=== PATIENT | male | born 1955 | race Caucasian/White ===

== ENCOUNTER 2017-03-12 07:56 | Inpatient (IN) | payer BC, OTHER ==
[~2017-03-12] VITALS: Ht 185.4 cm; Wt 121.6 kg
[2017-03-12] VITALS (7 sets, daily range): BP systolic 134–162; BP diastolic 73–87; PULSE 84–93; TEMP 36.4–36.9; O2SAT 89–97; Ht 185.4 cm; Wt 121.6 kg
[~2017-03-12 07:56] MED LIST: ASPCH81 PO; CRD200 PO; FRRS300 PO; GLC500 PO; HYDC25 PO; LRT5 PO; METO100T14 PO; MULT-506 PO
[2017-03-12] MEDS ORDERED: KETOROLAC TROMETHAMINE 30 MG/ML VIAL IV STA (08:20)
[2017-03-12] MEDS ORDERED: ALBUT/IPRATROP 3MG/0.5MG NEB 3 ML VIAL INH STA (08:20)
[2017-03-12] MEDS ORDERED: ACETAMINOPHEN 500 MG TAB PO STA (08:20)
[2017-03-12] MEDS ORDERED: SODIUM CHLORIDE 0.9% 1000ML 1,000 ML IV STA (08:20)
[2017-03-12] MEDS ORDERED: OMEG120013 PO (08:21)
[2017-03-12] MEDS ORDERED: NF406 PO (08:21)
[2017-03-12] MEDS ORDERED: METF-384 PO (08:21)
[2017-03-12] MEDS ORDERED: CHOL20009 PO (08:21)
[2017-03-12] MEDS ORDERED: ALLO100T PO (08:21)
[2017-03-12] MEDS ORDERED: DILT240C75 PO (08:21)
[2017-03-12] MEDS ORDERED: LISI40TA PO (08:21)
[2017-03-12] MEDS ORDERED: GABA-113 PO (08:21)
[2017-03-12] MEDS ORDERED: HYDR25TA5 PO (08:21)
[2017-03-12] MEDS ORDERED: DEXTTAB PO (08:21)
[2017-03-12] MEDS ORDERED: CARV25TA2 PO (08:21)
[2017-03-12] MEDS ORDERED: DEXAMETHASONE INJ 10 MG in SYRINGE 0 ML IV ONE (08:30)
[2017-03-12] MEDS ORDERED: LEVAQUIN 750MG / 150ML D5W IV STA (08:50)
[2017-03-12 08:51] LABS: BASO % 0.2 %; BASO ABS # 0.03 K/uL (0-0.2); COMPLETE YES; EOS % 0.2 %; HEMATOCRIT 38.4 % (42-52); IG% 0.6 %; LYMPH % 10.4 %; MEAN CELL VOLUME 85.3 fL (80-100); MEAN CORPUSCULAR HEMOGLOBIN 30.4 pg (25-34); MEAN CORPUSCULAR HGB CONC 35.7 g/dl (32-36); MEAN PLATELET VOLUME 10.4 fL (7.4-10.4); MONO % 12.2 %; NEUT % 76.4 %; PLATELET COUNT 343 K/uL (130-400); WHITE BLOOD COUNT 14.39 K/uL (4.8-10.8)
--- NOTE | 2017-03-12 08:57 | DIAGNOSTIC IMAGING REPORT ---
CHEST ONE VIEW PORTABLE CLINICAL HISTORY: Fever and sepsis COMPARISON STUDY: 01/04/2010 FINDINGS: There are postsurgical changes of midline sternotomy. There are extensive right middle and lower lung zone airspace opacity suspicious for pneumonia. There is mild elevation left hemidiaphragm. Linear left basilar opacities are likely atelectatic. There is no overt failure.[ IMPRESSION: Extensive right middle and lower lung zone airspace opacities suspicious for pneumonia. Clinical and radiographic follow-up is recommended. Electronically signed by: Tone Burger M.D. 03/12/2017 8:55 AM Dictated Date/Time: 03/12/2017 8:54 AM
[2017-03-12 09:08] LABS: ALT/SGPT 64 U/L (12-78); AST/SGOT 59 U/L (15-37); BLOOD UREA NITROGEN 15 mg/dl (7-18); BUN/CREATININE RATIO 16.2 (10-20); CALCIUM 9.2 mg/dl (8.5-10.1); CARBON DIOXIDE 30 mmol/L (21-32); CHLORIDE 88 mmol/L (98-107); CREATININE 0.93 mg/dl (0.60-1.40); GLUCOSE 152 mg/dl (70-99); POTASSIUM 2.6 mmol/L (3.5-5.1); SODIUM 129 mmol/L (136-145)
[2017-03-12 09:09] LABS: INR 1.1 (0.9-1.1); PARTIAL THROMBOPLASTIN RATIO 1.3; PROTHROMBIN TIME (PATIENT) 11.6 SECONDS (9.0-12.0)
[2017-03-12] MEDS ORDERED: POTASSIUM CHLORIDE 10 MEQ TABCR PO STA (09:12)
[2017-03-12] MEDS ORDERED: ENOXAPARIN 120 MG/0.8 ML SYR SQ SCH (09:15)
[2017-03-12] MEDS ORDERED: ENOXAPARIN 1 MG/KG SQ ONE (09:15)
[2017-03-12] MEDS ORDERED: DEXAMETHASONE **PF** INJ 10 MG/ML VIAL ONE (09:20)
[2017-03-12 09:22] LABS: ALKALINE PHOSPHATASE 82 U/L (45-117)
--- NOTE | 2017-03-12 10:08 | EMERGENCY ROOM VISIT NOTE ---
History Report prepared by Kofi: Awa Moctezuma Under the Supervision of: Dr. John Subramanian D.O. First contact with patient: 08:11 Chief Complaint: FLU LIKE SX Stated Complaint: FLU History of Present Illness The patient is a 61 year old male who presents to the Emergency Room with complaints of a worsening illness that began six days ago. He currently rates his discomfort as a 7/10 in severity. The patient's states that last Sunday the patient became ill and saw his PCP. She states that the patient was diagnosed with the flu and sent home with Tamiflu. The patient's states that the patient has not gotten any better, noting that the patient's symptoms have been worsening. She states that the patient has been coughing, experiencing rhinorrhea, and has been experiencing a decrease in appetite. The patient states that he cannot sleep due to his symptoms. Source of History: patient Onset: six days ago Position: other (global) Symptom Intensity: 7/10 Quality: other (illness) Timing: worsening Associated Symptoms: + fevers, + cough Review of Systems See HPI for pertinent positives & negatives. A total of 10 systems reviewed and were otherwise negative. Past Medical & Surgical Medical Problems: (1) Pneumonia Social History Smoking Status: Never Smoker Marital Status: Current/Historical Medications Scheduled Allopurinol (Zyloprim), 100 MG PO DAILY Carvedilol (Coreg), 25 MG PO BID Cholecalciferol (Vitamin D), 2,000 UNITS PO DAILY Dextromethorphan-Acetaminophen (Coricidin Hbp Flu), 1 TAB PO UD Diltiazem Hcl Extended Release (Diltiazem Hcl), 240 MG PO DAILY Gabapentin (Neurontin), 300 MG PO DAILY Hydrochlorothiazide (Hydrochlorothiazide), 25 MG PO DAILY Lisinopril (Zestril), 40 MG PO DAILY Metformin Hcl (Glucophage), 1,000 MG PO BID [place]-3 Fatty Acids (Fish Oil), 1,200 MG PO DAILY Oseltamivir Phosphate (Tamiflu), 75 MG PO BID Allergies Coded Allergies: No Known Allergies (Unverified , 03/12/17) Physical Exam Vital Signs Date Time Temp Pulse Resp B/P (MAP) Pulse Ox O2 Delivery O2 Flow Rate FiO2 03/12/17 09:40 36.9 03/12/17 09:05 104 24 181/97 94 Nasal Cannula 2.0 03/12/17 08:16 115 03/12/17 08:10 94 Nasal Cannula 2.0 03/12/17 08:10 94 Nasal Cannula 2.0 03/12/17 08:01 39.1 115 24 168/98 90 Room Air Physical Exam CONSTITUTIONAL/VITAL SIGNS: Reviewed / noted above. GENERAL: Non-toxic in appearance. INTEGUMENTARY: Warm, dry, and [place]. HEAD: Normocephalic. EYES: without scleral icterus or trauma. ENT/OROPHARYNX: clear and moist. LYMPHADENOPATHY/NECK: Is supple without lymphadenopathy or meningismus. RESPIRATORY: Lungs clear and equal. CARDIOVASCULAR: Regular rate and rhythm. GI/ABDOMEN: Soft and nontender. No organomegaly or pulsatile mass. No rebound or guarding. Normal bowel sounds. EXTREMITIES: Warm and well perfused. BACK: No CVA tenderness. NEUROLOGICAL: Intact without focal deficits. PSYCHIATRIC: normal affect. MUSCULOSKELETAL: Normally developed with good muscle tone. Medical Decision & Procedures ER Provider Diagnostic Interpretation: X ray results and stated below per my interpretation and radiology interpretation. CHEST ONE VIEW PORTABLE CLINICAL HISTORY: Fever and sepsis COMPARISON STUDY: 01/04/2010 FINDINGS: There are postsurgical changes of midline sternotomy. There are extensive right middle and lower lung zone airspace opacity suspicious for pneumonia. There is mild elevation left hemidiaphragm. Linear left basilar opacities are likely atelectatic. There is no overt failure.[ IMPRESSION: Extensive right middle and lower lung zone airspace opacities suspicious for pneumonia. Clinical and radiographic follow-up is recommended. Electronically signed by: Tone Burger M.D. 03/12/2017 8:55 AM Dictated Date/Time: 03/12/2017 8:54 AM The status of this report is Signed. Draft = Not yet reviewed or approved by Radiologist. Signed = Reviewed and approved by Radiologist. Laboratory Results 03/12/17 08:30 Red Blood Count 4.50, Mean Corpuscular Volume 85.3, Mean Corpuscular Hemoglobin 30.4, Mean Corpuscular Hemoglobin Concent 35.7, Mean Platelet Volume 10.4, Neutrophils (%) (Auto) 76.4, Lymphocytes (%) (Auto) 10.4, Monocytes (%) (Auto) 12.2, Eosinophils (%) (Auto) 0.2, Basophils (%) (Auto) 0.2, Neutrophils # (Auto ) 10.99, Lymphocytes # (Auto) 1.50, Monocytes # (Auto) 1.76, Eosinophils # (Auto ) 0.03, Basophils # (Auto) 0.03 03/12/17 08:30 Test 03/12/17 08:30 03/12/17 08:47 03/12/17 09:05 White Blood Count 14.39 K/uL (4.8-10.8) Red Blood Count 4.50 M/uL (4.7-6.1) Hemoglobin 13.7 g/dL (14.0-18.0) Hematocrit 38.4 % (42-52) Mean Corpuscular Volume 85.3 fL (80-100) Mean Corpuscular Hemoglobin 30.4 pg (25-34) Mean Corpuscular Hemoglobin Concent 35.7 g/dl (32-36) Platelet Count 343 K/uL (130-400) Mean Platelet Volume 10.4 fL (7.4-10.4) Neutrophils (%) (Auto) 76.4 % Lymphocytes (%) (Auto) 10.4 % Monocytes (%) (Auto) 12.2 % Eosinophils (%) (Auto) 0.2 % Basophils (%) (Auto) 0.2 % Neutrophils # (Auto) 10.99 K/uL (1.4-6.5) Lymphocytes # (Auto) 1.50 K/uL (1.2-3.4) Monocytes # (Auto) 1.76 K/uL (0.11-0.59) Eosinophils # (Auto) 0.03 K/uL (0-0.5) Basophils # (Auto) 0.03 K/uL (0-0.2) RDW Standard Deviation 42.1 fL (36.4-46.3) RDW Coefficient of Variation 13.5 % (11.5-14.5) Immature Granulocyte % (Auto) 0.6 % Immature Granulocyte # (Auto) 0.08 K/uL (0.00-0.02) Prothrombin Time 11.6 SECONDS (9.0-12.0) Prothromb Time International Ratio 1.1 (0.9-1.1) Activated Partial Thromboplast Time 33.3 SECONDS (21.0-31.0) Partial Thromboplastin Ratio 1.3 Anion Gap 10.0 mmol/L (3-11) Est Creatinine Clear Calc Drug Dose 116.6 ml/min Estimated GFR () 103.8 Estimated GFR (Non- 89.5 BUN/Creatinine Ratio 16.2 (10-20) Calcium Level 9.2 mg/dl (8.5-10.1) Total Bilirubin 0.8 mg/dl (0.2-1) Direct Bilirubin 0.3 mg/dl (0-0.2) Aspartate Amino Transf (AST/SGOT) 59 U/L (15-37) Alanine Aminotransferase (ALT/SGPT) 64 U/L (12-78) Alkaline Phosphatase 82 U/L (45-117) Total Creatine Kinase 1129 U/L (39-308) Creatine Kinase MB 11.0 ng/ml (0.5-3.6) Creatine Kinase MB Ratio 1.0 (0-3.0) Troponin I < 0.015 ng/ml (0-0.045) Total Protein 7.8 gm/dl (6.4-8.2) Albumin 2.9 gm/dl (3.4-5.0) Lipase 159 U/L (73-393) Lactic Acid Level 1.4 mmol/L (0.4-2.0) Laboratory results as stated above per my review. Medications Administered Medications (Trade) Dose Ordered Sig/Mervin Route Start Time Stop Time Status Last Admin Dose Admin Sodium Chloride 1,000 ml @ 999 mls/hr Q1H1M STAT IV 03/12/17 08:20 03/12/17 09:20 DC 03/12/17 09:00 999 MLS/HR Acetaminophen (Tylenol Tab) 1,000 mg NOW STAT PO 03/12/17 08:20 03/12/17 08:24 DC 03/12/17 09:01 1,000 MG Albuterol/ Ipratropium (Duoneb) 3 ml NOW STAT INH 03/12/17 08:20 03/12/17 08:24 DC 03/12/17 09:00 3 ML Ketorolac Tromethamine (Toradol Inj) 30 mg NOW STAT IV 03/12/17 08:20 03/12/17 08:24 DC 03/12/17 09:01 30 MG Levofloxacin (Levaquin / D5W) 750 mg NOW STAT IV 03/12/17 08:50 03/12/17 08:52 DC 03/12/17 09:01 750 MG Potassium Chloride (Klor-Con M10) 60 meq NOW STAT PO 03/12/17 09:12 03/12/17 09:13 DC 03/12/17 09:25 60 MEQ Enoxaparin Sodium (Lovenox 1 Mg/Kg) 1 ea ONE ONCE SQ 03/12/17 09:15 03/12/17 09:16 DC 03/12/17 09:40 1 EA Enoxaparin Sodium (Lovenox Inj) 120 mg 0915 SQ 03/12/17 09:15 03/12/17 12:15 03/12/17 09:40 120 MG Dexamethasone Sodium Phosphate (Dexamethasone Inj Pf) 10 mg STK-MED ONCE .ROUTE 03/12/17 09:20 03/12/17 09:21 DC 03/12/17 09:24 10 MG ECG Indication: weakness Rate (beats per minute): 101 Rhythm: atrial flutter Findings: no acute ischemic change, no ectopy ED Course 0814: Previous medical records were reviewed. The patient was evaluated in room A11B. A complete history and physical examination was performed. 0820: Ordered Toradol Inj 30 mg IV, DuoNeb 3 ml INH, Tylenol Tab 1000 mg PO, Sodium Chloride 1000 ml @ 999 mls/hr IV. 0830: Ordered Dexamethasone Sodium Phosphate 10 mg/Syringe 2.5 ml @ 1 mls/min IV. 0850: Levofloxacin 750 mg IV. 0912: Potassium Chloride 60 meq PO. 0915: Ordered Lovenox Inj 120 mg SX, Lovenox 1 mg/Kg 1 ea SQ. 0918: I reevaluated the patient and he is resting comfortably. I discussed the exam findings with him and I discussed the treatment plan. He verbalized complete understanding and agreement. He is going to be evaluated for further treatment. 0920: Ordered Dexamethasone Sodium Phosphate 10 mg .route. 0926: I discussed the patients case with Pamella Christianson. She is going to evaluate the patient for further treatment. Medical Decision Differential includes viral illness, influenza, streptococcal pharyngitis, meningitis, pneumonia, sinusitis, UTI, pyelonephritis, and otitis media. This is a 61-year-old male who presents to the ED with a chief complaint of shortness of breath and upper respiratory symptoms. The patient was diagnosed with influenza clinically on Sunday of last week. He was started on Tamiflu. His symptoms have worsened since that time. Has hoarseness in the voice as well as shortness of breath and nasal drainage. He also has a cough and decreased appetite. Temperature here today is 39.1. Heart rate is 1:15. Oxygen saturations are 90% on room air. His white count was 14.3. A chest x- ray reveals right middle lobe and lower lobe pneumonia. Sodium of the tests were slightly low. The patient's EKG shows A. fib with a rate of 101. He does not have a history of chronic A. fib. The patient was treated with IV Toradol, IV fluids, Tylenol by mouth, DuoNeb treatment, Decadron IV, potassium by mouth, Lovenox subcutaneous and Levaquin IV. He will be seen by the hospitalist for further inpatient evaluation and care. Medication Reconcilliation Current Medication List: was personally reviewed by me Consults Time Called: [phone] Consulting Physician: Pamella Christianson Returned Call: [phone] I discussed the patients case with Pamella Christianson. She is going to evaluate the patient for further treatment. Impression Primary Impression: Pneumonia Additional Impressions: New onset atrial fibrillation Hyponatremia Hypokalemia Scribe Attestation The scribe's documentation has been prepared under my direction and personally reviewed by me in its entirety. I confirm that the note above accurately reflects all work, treatment, procedures, and medical decision making performed by me. Departure Information Dispostion Being Evaluated By Hospitalist Galdino Babin M.D. (PCP) Problem Qualifiers
[2017-03-12 10:45] LABS: INFLUENZA A PCR Neg for Influ A (NEG); INFLUENZA B PCR Neg for Influ B (NEG)
[2017-03-12] MEDS ORDERED: LEVALBUTEROL/IPRATROPIUM NEB INH PRN (10:45)
[2017-03-12] MEDS ORDERED: ACETAMINOPHEN 325 MG TAB PO PRN (10:45)
[2017-03-12] MEDS ORDERED: ONDANSETRON INJ 2 MG/ML 2 ML VIAL IV PRN (10:45)
[2017-03-12] MEDS ORDERED: PIPERACILL/TAZOBAC CONSULT ACTIVE PRN (10:51)
[2017-03-12] MEDS ORDERED: GLUCOSE 40% GEL 15 GM TUBE PO PRN (11:00)
[2017-03-12] MEDS ORDERED: GLUCOSE 10 TABS/TUBE PO PRN (11:00)
[2017-03-12] MEDS ORDERED: GLUCAGON FOR INJ 1 MG VIAL SQ PRN (11:00)
[2017-03-12] MEDS ORDERED: IPRATROPIUM BROMIDE NEB SOLN 0.02% 2.5 ML VIAL INH PRN (11:00)
[2017-03-12] MEDS ORDERED: LEVALBUTEROL 0.63MG/3 ML NEB INH PRN (11:00)
[2017-03-12] MEDS ORDERED: DEXTROSE 50% 50 ML SYR IV PRN (11:00)
[2017-03-12] MEDS ORDERED: ASPI-435 PO (11:11)
[2017-03-12] MEDS ORDERED: CHOL100027 PO (11:11)
[2017-03-12] MEDS ORDERED: MULT-506 PO (11:11)
[2017-03-12] MEDS ORDERED: DILTIAZEM HCL 120 MG EXT REL CAP PO SCH (12:00)
[2017-03-12] MEDS: NSS + 20MEQ KCL 1000ML 1,000 ML IV SCH ×2 (12:41→22:04)
[2017-03-12] MEDS: CIPROFLOXACIN HCL 0.3% OP SOLN 2.5 ML BTL OPR SCH ×3 (12:41→20:59)
[2017-03-12] MEDS: CEFEPIME IV 2,000 MG in SYRINGE 7.5 ML IV SCH ×2 (12:42→21:02)
[2017-03-12] MEDS: INSULIN ASPART 100 UNITS/ML 3 ML PEN SC SCH ×3 (12:43→21:00)
--- NOTE | 2017-03-12 12:48 | History and Physical ---
History & Physical Date & Time of Service: Mar 12, 2017 at 11:19 Chief Complaint: FLU Primary Care Physician: Hector Aguilar M.D. (MEDICAL) History of Present Illness Source: patient, spouse Pt is 61 y/o M with PMH HTN, dyslipidemia, DM II, hx thoracic aneurysm, hx aortic valve replacement with a-fib post-op responded well to amiodarone x 3 months presented to ER with c/o cough x 6 days. Pt reports 6 days ago started with cough, tactile fever, myalgias and went to PCP and clinically dx with influenza and started on Tamiflu and Coricidin HBP. Pt finished Tamiflu yesterday. Pt states used Flonase for a couple of days, however got epistaxis so stopped, no further epistaxis. Has been using saline nasal spray also. He reports feeling worse with worsening cough, rhinorrhea, continued tactile fevers , myalgias, fatigue, decreased appetite. Has been drinking fluids, but not eating much. Has PASCUAL with coughing hard. Cough is productive yellow color sputum. Reports this morning woke up with R eye redness, purulent discharge from right eye. Pt did not take his morning meds today. Denies N/V/D/C, dizziness, syncope, vision changes, photophobia, eye injury, neck pain, CP, SOB , orthopnea, palpitations, hemoptysis, sore throat, choking, otalgia, abdominal pain, paresthesias, extremity weakness, extremity edema, rashes, urinary symptoms. In ER pt febrile 39.1, given tylenol and temp down to 36.9. Tachy at 115 down to 93 after 1L NSS. R: 24 intially down to 20 after duoneb tx. O2 90% on RA to 94% on 2L NC. BP: 168/98. EKG: a-fib rate 101. Negative troponin, CPK: 1129. K: 2.6, Pt given potassium 60. WBC: 14, Lactic acid: 1.4. Pending blood cultures. negative rapid influenza. Pt given Levaquin 750mg IV, dexamethasone, lovenox 120mg. Past Medical/Surgical History Medical Problems: (1) DM type 2 (diabetes mellitus, type 2) Status: Chronic (2) Dyslipidemia Status: Chronic (3) Gout Status: Chronic (4) HTN (hypertension) Status: Chronic (5) Hx of atrial fibrillation, no current medication Permanent Comment: 2010 - after aortic valve replaced. 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 Velasco at [facility] in [place], [place] - 12/27/09 Status: Chronic (2) Hx of tonsillectomy Status: Resolved (3) Hx of vasectomy Status: Resolved Family History FH: cancer FATHER (prostate [place]) MOTHER (Breast CA) Social History Smoking Status: Never Smoker Smokeless Tobacco Use: No Alcohol Use: socially Drug Use: none Marital Status: Housing status: lives with family Immunizations History of Influenza Vaccine: No History of Tetanus Vaccine?: Unknown History of Pneumococcal: No History of Hepatitis B Vaccine: No Multi-Drug Resistant Organisms History of MDRO: No Allergies Coded Allergies: No Known Allergies (Unverified , 03/12/17) Home Medications Scheduled Allopurinol (Zyloprim), 100 MG PO DAILY Aspirin (Aspirin 81), 1 TAB PO DAILY Carvedilol (Coreg), 25 MG PO BID Cholecalciferol (Vitamin D 1000 Unit), 2 CAP PO DAILY Dextromethorphan-Acetaminophen (Coricidin Hbp Flu), 1 TAB PO UD Diltiazem Hcl Extended Release (Diltiazem Hcl), 240 MG PO DAILY Gabapentin (Neurontin), 300 MG PO DAILY Hydrochlorothiazide (Hydrochlorothiazide), 25 MG PO DAILY Lisinopril (Zestril), 40 MG PO DAILY Metformin Hcl (Glucophage), 1,000 MG PO BID Multivitamin (Multivitamin), 1 TAB PO DAILY [place]-3 Fatty Acids (Fish Oil), 1,200 MG PO DAILY Oseltamivir Phosphate (Tamiflu), 75 MG PO BID Review of Systems Eyes: + redness (see HPI), + discharge, No worsening of vision, No eye pain ENT: + nasal symptoms (see HPI), No hearing loss, No unusual epistaxis, No sore throat, No tinnitus, No trouble swallowing Respiratory: + cough (see HPI), + sputum, No wheezing, No shortness of breath, No dyspnea on exertion, No dyspnea at rest, No hemoptysis Cardiovascular: No chest pain, No orthopnea, No PND, No edema, No palpitations Abdomen: No pain, No nausea, No vomiting, No diarrhea, No constipation, No GI bleeding Musculoskeletal: No joint pain, No muscle pain, No swelling, No calf pain Genitourinary - Male: No hematuria, No dysuria, No urinary frequency, No urinary urgency Neurologic: No memory loss, No paralysis, No numbness/tingling, No vertigo Psychiatric: No depression symptoms, No anxiety Endocrine: No excessive thirst, No excessive urination Hematologic / Lymphatic: No abnormal bleeding/bruising, No clotting problems Integumentary: No rash, No itch Physical Exam Vital Signs Date Time Temp Pulse Resp B/P (MAP) Pulse Ox O2 Delivery O2 Flow Rate FiO2 03/12/17 10:50 91 20 161/91 96 Room Air 03/12/17 09:40 36.9 03/12/17 09:05 104 24 181/97 94 Nasal Cannula 2.0 03/12/17 08:16 115 03/12/17 08:10 94 Nasal Cannula 2.0 03/12/17 08:10 94 Nasal Cannula 2.0 03/12/17 08:01 39.1 115 24 168/98 90 Room Air General Appearance: WD/WN, no apparent distress, + pertinent finding (ill appearing, non-toxic appearance) Head: normocephalic, atraumatic Eyes: PERRL, EOMI, + pertinent finding (right eye: conjuntiva erythema and mild edema, +purulent discharge. No photophobia. No orbital erythema or edema or tenderness to palpation) ENT: TMs normal, pharynx normal, + pertinent finding (+post nasal drip) Neck: supple, no JVD, trachea midline Respiratory/Chest: chest non-tender, no respiratory distress, no accessory muscle use, + pertinent finding (mild diminished RML, RLL) Cardiovascular: no murmur, normal peripheral pulses, + irregularly irregular ( rate 94) Abdomen/GI: normal bowel sounds, non tender, soft Extremities/Musculoskelatal: normal inspection, no calf tenderness, normal capillary refill, no pedal edema, normal range of motion, non-tender Neurologic/Psych: alert, normal mood/affect, oriented x 3 Skin: normal color, warm/dry, no rash Diagnostics Laboratory Results Results Past 24 Hours Test 03/12/17 08:30 03/12/17 08:47 03/12/17 09:05 Range/Units White Blood Count 14.39 4.8-10.8 K/uL Red Blood Count 4.50 4.7-6.1 M/uL Hemoglobin 13.7 14.0-18.0 g/dL Hematocrit 38.4 42-52 % Mean Corpuscular Volume 85.3 80-100 fL Mean Corpuscular Hemoglobin 30.4 25-34 pg Mean Corpuscular Hemoglobin Concent 35.7 32-36 g/dl Platelet Count 343 130-400 K/uL Mean Platelet Volume 10.4 7.4-10.4 fL Neutrophils (%) (Auto) 76.4 % Lymphocytes (%) (Auto) 10.4 % Monocytes (%) (Auto) 12.2 % Eosinophils (%) (Auto) 0.2 % Basophils (%) (Auto) 0.2 % Neutrophils # (Auto) 10.99 1.4-6.5 K/uL Lymphocytes # (Auto) 1.50 1.2-3.4 K/uL Monocytes # (Auto) 1.76 0.11-0.59 K/uL Eosinophils # (Auto) 0.03 0-0.5 K/uL Basophils # (Auto) 0.03 0-0.2 K/uL RDW Standard Deviation 42.1 36.4-46.3 fL RDW Coefficient of Variation 13.5 11.5-14.5 % Immature Granulocyte % (Auto) 0.6 % Immature Granulocyte # (Auto) 0.08 0.00-0.02 K/uL Prothrombin Time 11.6 9.0-12.0 SECONDS Prothromb Time International Ratio 1.1 0.9-1.1 Activated Partial Thromboplast Time 33.3 21.0-31.0 SECONDS Partial Thromboplastin Ratio 1.3 Sodium Level 129 136-145 mmol/L Potassium Level 2.6 3.5-5.1 mmol/L Chloride Level 88 98-107 mmol/L Carbon Dioxide Level 30 21-32 mmol/L Anion Gap 10.0 3-11 mmol/L Blood Urea Nitrogen 15 7-18 mg/dl Creatinine 0.93 0.60-1.40 mg/dl Est Creatinine Clear Calc Drug Dose 116.6 ml/min Estimated GFR () 103.8 Estimated GFR (Non- 89.5 BUN/Creatinine Ratio 16.2 10-20 Random Glucose 152 70-99 mg/dl Calcium Level 9.2 8.5-10.1 mg/dl Total Bilirubin 0.8 0.2-1 mg/dl Direct Bilirubin 0.3 0-0.2 mg/dl Aspartate Amino Transf (AST/SGOT) 59 15-37 U/L Alanine Aminotransferase (ALT/SGPT) 64 12-78 U/L Alkaline Phosphatase 82 45-117 U/L Total Creatine Kinase 1129 39-308 U/L Creatine Kinase MB 11.0 0.5-3.6 ng/ml Creatine Kinase MB Ratio 1.0 0-3.0 Troponin I < 0.015 0-0.045 ng/ml Total Protein 7.8 6.4-8.2 gm/dl Albumin 2.9 3.4-5.0 gm/dl Lipase 159 73-393 U/L Lactic Acid Level 1.4 0.4-2.0 mmol/L Influenza Type A (RT-PCR) Neg for Influ A NEG Influenza Type B (RT-PCR) Neg for Influ B NEG Microbiology Results 03/12/17 Blood Culture, Received Pending 03/12/17 Blood Culture, Received Pending Diagnostic Radiology CXR: IMPRESSION: Extensive right middle and lower lung zone airspace opacities suspicious for pneumonia. Clinical and radiographic follow-up is recommended. EKG EKG: A-fib, rate 101 Impression Assessment and Plan PNEUMONIA CAP. No recent hospitalizations. Pt with cough, tactile fevers x 6 days, seen initially out pt treated with 5 days Tamiflu, that finished yesterday. Febrile 39.1 on ER arrival, pt given Tylenol. O2 sat 90% on RA up to 94% on 2L O2. CXR: RML consolidation. Lactic acid 1.4. WBC: 14. influenza swab negative in ER. Pt given levaquin, dexamethasone, duoneb in ER. -pending blood cultures -MRSA swab -Levaquin IV -cefepime IV -supplemental oxygen per protocol -Xopenex/Atrovent nebs -repeat CXR tomorrow am -repeat CBC in am A-FIB Pt with hx a-fib after AVR in 2009, treated with amiodarone x 3 months no further recurrences. Today EKG: a-fib, Initial rate in ER 115. Rate decreased to 90's after 1L NSS in ER. Denies palpitations, CP. Negative initial troponin. CPK: 1129. Pt with some dehydration. Pt given lovenox 121 in ER -repeat EKG in am -trend cardiac enzymes -continue to monitor -gentle IV fluids -lovenox 1mg/kg Q 12h -cardiology consult HYPOKALEMIA K: 2.6. Pt given K 60 po in ER. Pending magnesium lab -NSS with 20meq K 100ml/hr -repeat prp in am CONJUNCTIVITIS - R EYE pt with conjunctivitis, onset this am. no vision changes, photophobia, no orbital edema/erythema currently -cipro eye drops -continue to monitor HTN Pt didn't take his meds this AM. Will give morning meds and continue to monitor BP. May need further adjustments -continue coreg -continue diltiazem -continue lisinopril -held HCTZ DM II -A1c in am -hold metformin -NovoLog sliding scale per protocol -Lantus 11 BID HX GOUT -continue allopurinol DVT PROPHYLAXIS -Pt given therapeutic dose lovenox DISPOSITION -admit tele -Full Code as per discussion with pt -Follows with Dr Francisco for routine care Pt was seen with Dr De La Rosa. See addendum Agree with above H and P. 61M with hx of Htn, AVR and a fib post AVR and was on amiodarone for 3 months who just finished course of Tamiflu for influenza presents with worsening cough,fevers,sob and weakness. In the Er found to have right sided pneumonia and was in a fib.Denies chest pain. No nausea. Normal bowel and bladder movements. 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 speech evaluation started on iv Levaquin and cefepime monitor response A fib continue home med of diltiazem iv Lopressor prn Lovenox cardiology consulted Level of Care Telemetry Resuscitation Status FULL RESUSCITATION VTE Prophylaxis VTE Risk Assessment Done? Y/N: Yes Risk Level: Moderate Given or contraindicated: Other Anticoagulation Additional Copies To Galdino Francisco M.D.
[2017-03-12] MEDS: CARVEDILOL 25 MG TAB PO SCH ×2 (12:54→20:59)
[2017-03-12] MEDS: LISINOPRIL 40 MG TAB PO SCH (12:54)
[2017-03-12] MEDS: ASPIRIN 81 MG ECTAB PO SCH (12:54)
[2017-03-12] MEDS: IPRATROPIUM BROMIDE NEB SOLN 0.02% 2.5 ML VIAL INH SCH ×2 (14:23→19:08)
[2017-03-12] MEDS: LEVALBUTEROL 1.25MG/0.5ML NEB INH SCH ×2 (14:23→19:08)
[2017-03-12] MEDS ORDERED: LEVALBUTEROL/IPRATROPIUM NEB INH SCH (15:00)
[2017-03-12 15:33] LABS: CKMB/CK RATIO 1.2 (0-3.0)
[2017-03-12] MEDS ORDERED: METOPROLOL TARTRATE 1 MG/ML VIAL IV PRN (16:15)
[2017-03-12 20:48] LABS: CKMB/CK RATIO 1.6 (0-3.0)
[2017-03-12] MEDS: ENOXAPARIN 120 MG/0.8 ML SYR SQ SCH (21:05)
[2017-03-12] MEDS: INSULIN GLARGINE SOLOSTAR 100 UNITS/ML 3 ML PEN SC SCH (21:05)
[2017-03-13] VITALS (10 sets, daily range): BP systolic 147–167; BP diastolic 77–96; PULSE 67–102; TEMP 36.6–37.2; O2SAT 91–99
--- NOTE | 2017-03-13 00:34 | CARDIOLOGY CONSULTATION ---
DATE OF CONSULTATION: 03/12/2017 The patient seen and examined. Chart, medications, telemetry reviewed. REFERRING PHYSICIAN: Dr. Almaguer. INDICATIONS: Pneumonia, newly noted atrial flutter. 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 The patient at that time received a 27 mm Freestyle bioprosthesis and a 28 mm Hemashield aortic root graft. Postoperative course was notable for transient atrial fibrillation without recurrence. Preoperative cardiac catheterization revealed no obstructive coronary disease per the patient. His underlying medical issues include a history of dyslipidemia, type 2 diabetes mellitus, past gout, hypertension. The patient presents now noting gradually worsening cough, fever, myalgias and treated over the past week for presumed influenza. The patient had worsening cough, rhinorrhea and hoarseness, and presented to the Emergency Room with headache and general malaise. In the ER, he was found to have significant right-sided pneumonia and newly observed atrial flutter, though with controlled ventricular response rate. The patient is referred now for further evaluation. He currently denies any signs or symptoms of cardiac decline. He has not been aware of any atrial arrhythmia since surgery. Notes no history of tachypalpitations, syncope or near syncope. Clinical history has recently changed over only in the last 1-2 weeks of upper respiratory and now cough and marked malaise. He notes no bleeding difficulties. Notes no melena, hematochezia, dysuria or hematuria. Appetite has been fair. Notes no rash or arthritic complaint. He was generally active about home and job up until recent illness. REVIEW OF SYSTEMS: As per HPI and otherwise negative. ALLERGIES: None. MEDICATIONS PRIOR TO HOSPITALIZATION: Allopurinol 100 mg p.o. daily, aspirin 81 mg daily, carvedilol 25 mg twice per day, cholecalciferol 1000 units D two capsules daily, Coricidin for decongestant, diltiazem extended release 240 mg p.o. daily, gabapentin 300 mg p.o. daily, hydrochlorothiazide 25 mg p.o. daily, Zestril 40 mg p.o. daily, metformin 1000 mg twice per day, multivitamin per day, omega-3 fish oil 1200 mg p.o. daily and Tamiflu as noted recently begun. PAST SURGICAL HISTORY: Notable for cardiac surgeries as described, aortic valve replacement and aortic root repair at [facility] in 12/2009, remote tonsillectomy and vasectomy. FAMILY HISTORY: Not specifically notable for cardiac disease. 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 He is a nonsmoker. Very rare alcohol user. PHYSICAL EXAMINATION: GENERAL: The patient appears visibly ill, hoarse and ill appearing, with conjunctival injection and discharge and itching. VITAL SIGNS: Reveal a heart rate of 90 and blood pressure is 162/87. HEENT: Normocephalic and atraumatic. Nares without discharge. Throat is clear. NECK: Supple without thyromegaly or lymphadenopathy. LUNGS: Reveal coarse rhonchorous sounds on the right. Diminished breath sounds diffusely. CARDIOVASCULAR: Regularly irregular. There is a grade 1-2/6 systolic murmur. There is no diastolic murmur. ABDOMEN: Soft and nontender. There is no palpable hepatosplenomegaly. There is no hepatojugular reflux. EXTREMITIES: Without cyanosis or clubbing. There is no peripheral edema with intact distal pulses. SKIN: There are no skin lesions. LABORATORY DATA: On presentation, sodium is 129, potassium is 2.6, chloride is 88, bicarbonate is 30, BUN is 15, creatinine 0.93. White cell count is 14.3, hemoglobin is 13.7, hematocrit is 38.4, platelet count is 343. Chest x-ray reveals extensive right middle lobe and lower lobe infiltrates. EKG demonstrates atrial flutter/fibrillation, rate 101, nonspecific ST-segment changes. IMPRESSION: The patient is a 61-year-old male with prior history of aortic valve replacement and root repair for bicuspid aortic valve disease and aortopathy in the remote past, who presents now with evidence of extensive pneumonia and clinical course consistent with such for the last 1 week's time, etiology uncertain. He does have associated hyponatremia and hypokalemia. He was found on ER presentation to be in atrial fibrillation with controlled ventricular response rate. RECOMMENDATIONS: Would continue usual medications in hospital including diltiazem and carvedilol which are likely controlling ventricular response rates. Continue to treat underlying hypertension and pneumonia including atypicals given hyponatremia. Consider screening for mycoplasma. We will review echocardiogram that has been ordered. Anticoagulation has been initiated. We will discuss possible long-term anticoagulation as clinical course progresses, and in the meantime, we will continue subcutaneous enoxaparin for treatment.
[2017-03-13] MEDS: LEVALBUTEROL 1.25MG/0.5ML NEB INH SCH ×4 (02:03→18:48)
[2017-03-13] MEDS: IPRATROPIUM BROMIDE NEB SOLN 0.02% 2.5 ML VIAL INH SCH ×4 (02:03→18:48)
[2017-03-13 07:12] LABS: BASO % 0.1 %; BASO ABS # 0.02 K/uL (0-0.2); COMPLETE YES; HEMATOCRIT 38.4 % (42-52); IG% 0.9 %; LYMPH % 11.1 %; LYMPH ABS # 1.63 K/uL (1.2-3.4); MEAN CELL VOLUME 85.9 fL (80-100); MEAN CORPUSCULAR HEMOGLOBIN 29.1 pg (25-34); MEAN CORPUSCULAR HGB CONC 33.9 g/dl (32-36); MEAN PLATELET VOLUME 10.1 fL (7.4-10.4); MONO % 8.1 %; NEUT % 79.8 %; PLATELET COUNT 337 K/uL (130-400); RED BLOOD COUNT 4.47 M/uL (4.7-6.1); WHITE BLOOD COUNT 14.74 K/uL (4.8-10.8)
[2017-03-13 07:35] LABS: ESTIMATED AVERAGE GLUCOSE 131 mg/dl; HA1C FLAG Normal (Normal)
--- NOTE | 2017-03-13 07:38 | DIAGNOSTIC IMAGING REPORT ---
CHEST 2 VIEWS ROUTINE CLINICAL HISTORY: 61 years-old Male presenting with cough, consolidation. TECHNIQUE: PA and lateral views of the chest were obtained. COMPARISON: 03/12/2017. FINDINGS: Median sternotomy wires intact. Atherosclerosis of aortic arch. Abandoned epicardial pacing lead projects over the right atrium, which appears enlarged. Overall stable appearance of the patchy bilateral pulmonary opacities in the mid and lower lungs, right greater than left. No large pleural effusion or pneumothorax. PICC to Osseous structures normal. Upper abdomen normal. IMPRESSION: 1. Stable patchy bilateral pulmonary opacities with a mid to basilar predominance, right greater than left. This is consistent with multifocal pneumonia versus aspiration/aspiration pneumonitis. Electronically signed by: Noble Canela M.D. 03/13/2017 7:37 AM Dictated Date/Time: 03/13/2017 7:34 AM
[2017-03-13] MEDS: NSS + 20MEQ KCL 1000ML 1,000 ML IV SCH ×2 (07:40→21:14)
[2017-03-13] MEDS: LEVOFLOXACIN / D5W 750 MG in PREMIXED IN D5W 150 ML IV SCH (07:40)
[2017-03-13] MEDS: ENOXAPARIN 120 MG/0.8 ML SYR SQ SCH ×2 (07:40→20:08)
[2017-03-13] MEDS: LISINOPRIL 40 MG TAB PO SCH (07:41)
[2017-03-13] MEDS: MULTIVITAMIN TAB PO SCH (07:41)
[2017-03-13] MEDS: CHOLECALCIFEROL 1000 INTER.UNIT TAB PO SCH (07:41)
[2017-03-13] MEDS: ALLOPURINOL 100 MG TAB PO SCH (07:41)
[2017-03-13] MEDS: ASPIRIN 81 MG ECTAB PO SCH (07:41)
[2017-03-13] MEDS: CIPROFLOXACIN HCL 0.3% OP SOLN 2.5 ML BTL OPR SCH ×4 (07:42→20:07)
[2017-03-13] MEDS: CARVEDILOL 25 MG TAB PO SCH ×2 (07:42→20:07)
[2017-03-13] MEDS: DILTIAZEM HCL 120 MG EXT REL CAP PO SCH (07:42)
[2017-03-13] MEDS: INSULIN ASPART 100 UNITS/ML 3 ML PEN SC SCH ×4 (07:44→20:04)
[2017-03-13] MEDS: INSULIN GLARGINE SOLOSTAR 100 UNITS/ML 3 ML PEN SC SCH (07:44)
[2017-03-13] MEDS: CEFEPIME IV 2,000 MG in SYRINGE 7.5 ML IV SCH (07:50)
[2017-03-13] MEDS: GABAPENTIN 300 MG CAP PO SCH (07:51)
[2017-03-13 07:52] LABS: CALCIUM 9.1 mg/dl (8.5-10.1); CREATININE 0.78 mg/dl (0.60-1.40); MAGNESIUM 2.1 mg/dl (1.8-2.4); POTASSIUM 3.5 mmol/L (3.5-5.1)
[2017-03-13] MEDS ORDERED: HYDROCHLOROTHIAZIDE 25 MG TAB PO SCH (09:00)
[2017-03-13] MEDS ORDERED: CARVEDILOL 12.5 MG TAB PO ONE (10:00)
--- NOTE | 2017-03-13 10:04 | CARDIOLOGY PROGRESS NOTE ---
DATE: 03/13/2017 DATE: 03/13/2017 The patient seen and examined. Chart, medications, telemetry reviewed. SUBJECTIVE: The patient feels substantially better this morning, still remains hoarse. Notes no dizziness or lightheadedness. Notes no further fevers or chills. Cough is improved. OBJECTIVE: VITAL SIGNS: Heart rate is 91, blood pressure is 167/88. NECK: Thick. There is no distinct jugular venous distention. LUNGS: Reveal scattered crackles at bases. CARDIOVASCULAR EXAMINATION: Irregularly irregular with a grade 2/6 systolic murmur. There is no diastolic murmur. ABDOMEN: Soft, nontender. There is no palpable splenomegaly. There is no hepatojugular reflux. EXTREMITIES: Without cyanosis or clubbing. There is no peripheral edema. There are intact distal pulses. DATA: Laboratory studies sodium is 133, potassium is 3.5, chloride is 95, bicarb 30, BUN is 18, creatinine 0.78. CK is mildly elevated at 745. Troponins were normal. EKG reveals atrial fibrillation, rate of 93, nonspecific ST segment changes. Chest x-ray reveals patchy infiltrates right middle lobe and right lower lobe. IMPRESSION: A 61-year-old male with a history of prior aortic valve replacement, aortic root repair for bicuspid valve disease and aortopathy in 2009, presents now with acute decline in association with significant right-sided pneumonia with newly noted atrial fibrillation on ER presentation. The patient is unaware of time or duration of onset of atrial arrhythmia, was begun on anticoagulation with Lovenox. RECOMMENDATIONS: Will increase carvedilol dosing just slightly to control blood pressure and heart rate. Would continue anticoagulation with Lovenox with planned conversion to warfarin. Treat underlying pneumonia. Potassium will be supplemented. Laboratories and examination suggestive of possible mycoplasma to etiology. He is on appropriate antibiotic therapies.
[2017-03-13] MEDS ORDERED: POTASSIUM CHLORIDE 20 MEQ TABCR PO STA (10:16)
--- NOTE | 2017-03-13 10:25 | Progress Note ---
Internal Med Progress Note Date of Service: Mar 13, 2017. Provider Documentation: SUBJECTIVE: Patient reports coughing is getting better but still present, Voice is hoarse sounding from the coughing, Denies chest pain, Denies breathing difficulties OBJECTIVE: Exam: General Appearance: no acute distress, coughing Head: normocephalic, atraumatic Eyes: EOMI Neck: supple, no JVD, trachea midline Respiratory/Chest: chest non-tender, no respiratory distress, no accessory muscle use, fair air entry mildly diminished breath sounds of right lung ibanez Cardiovascular: no murmur, normal peripheral pulses, irregularly irregular Abdomen/GI: normal bowel sounds, non tender, soft Extremities/Musculoskelatal: normal inspection, no calf tenderness, normal capillary refill, no pedal edema, normal range of motion, non-tender Neurologic/Psych: alert, normal mood/affect, oriented x 3 Skin: normal color, warm/dry, no rash ASSESSMENT & PLAN: CXR on 03/12/17 "There are postsurgical changes of midline sternotomy. There are extensive right middle and lower lung zone airspace opacity suspicious for pneumonia. There is mild elevation left hemidiaphragm. Linear left basilar opacities are likely atelectatic. There is no overt failure. IMPRESSION: Extensive right middle and lower lung zone airspace opacities suspicious for pneumonia" CXR on 03/13/17 "Median sternotomy wires intact. Atherosclerosis of aortic arch. Abandoned epicardial pacing lead projects over the right atrium, which appears enlarged. Overall stable appearance of the patchy bilateral pulmonary opacities in the mid and lower lungs, right greater than left. No large pleural effusion or pneumothorax. PICC to Osseous structures normal. Upper abdomen normal. IMPRESSION: Stable patchy bilateral pulmonary opacities with a mid to basilar predominance, right greater than left. This is consistent with multifocal pneumonia versus aspiration/aspiration pneumonitis." Community acquire pneumonia: MRSA sab negative, f/u blood cultures from 03/13/17, obtain sputum cultures, send mycoplasma lab, Patient given levaquin / dexamethasone / duoneb in the ER , continue antibiotics of Levaquin IV and cefepime IV (both started on 03/12/17) , continue supplemental oxygen, Xopenex/Atrovent nebs A-FIB Pt with hx a-fib after AVR in 2009, treated with amiodarone x 3 months no further recurrences. He was found on ER presentation to be in atrial fibrillation with controlled ventricular response rate on this admission, Continue with Lovenox 120 mg q12 hours and bridge to Coumadin, will continue to follow up with cardiology on longer term anticoagulation if needed, Continue Diltiazem for rate control, Cardiology service increased carvedilol on 03/13/17 HTN - carvedilol, diltiazem, lisinopril - continue to hold HCTZ due to electrolyte deficiencies HYPOKALEMIA and Hypomagnesemia on admission -hypomagnesemia resolved after supplementation -hypokalemia resolving after supplementation, serum potassium 3.5 on 03/13/17 and additional 40 meq potassium ordered Elevated Creatinine Kinase with normal renal function -CK downtrending, Hydration as tolerated DM II: HbA1c 6.1 -hold metformin -stop Lantus, HbA1c is 6.1 -continue NovoLog sliding scale per protocol HX GOUT -continue allopurinol CONJUNCTIVITIS - R EYE -continue ciprofloxacin eye drops DVT PROPHYLAXIS Full dose Lovenox 120 mg BID with bridge to Coumadin, Coumadin 5 mg daily ordered starting 03/13/17 Vital Signs: Date Time Temp Pulse Resp B/P (MAP) Pulse Ox O2 Delivery O2 Flow Rate FiO2 03/13/17 09:46 100 16 93 Room Air 03/13/17 08:00 Nasal Cannula 2.0 03/13/17 07:53 37.2 91 18 167/88 (114) 91 Room Air 03/13/17 04:00 Nasal Cannula 2.0 03/13/17 03:57 36.9 95 19 147/91 (109) 93 Nasal Cannula 03/13/17 02:03 67 16 96 Nasal Cannula 2.0 03/12/17 23:59 Nasal Cannula 2.0 03/12/17 23:34 36.9 91 19 134/82 (99) 92 03/12/17 20:16 36.4 84 18 160/86 (110) 91 Room Air 03/12/17 20:00 Nasal Cannula 2.0 03/12/17 19:08 87 16 93 Room Air 03/12/17 18:33 91 Room Air 03/12/17 16:00 Room Air 03/12/17 15:45 36.8 93 22 149/73 (98) 89 Room Air 03/12/17 14:26 85 16 96 Room Air 03/12/17 11:11 36.8 91 20 162/87 97 Nasal Cannula 2.0 03/12/17 10:50 91 20 161/91 96 Room Air Lab Results: Results Past 24 Hours Test 03/12/17 12:16 03/12/17 14:52 03/12/17 16:33 03/12/17 20:18 Range/Units Bedside Glucose 184 219 70-99 mg/dl Total Creatine Kinase 959 893 39-308 U/L Creatine Kinase MB 11.5 14.5 0.5-3.6 ng/ml Creatine Kinase MB Ratio 1.2 1.6 0-3.0 Troponin I < 0.015 < 0.015 0-0.045 ng/ml Test 03/12/17 20:30 03/13/17 06:38 03/13/17 06:43 Range/Units Bedside Glucose 171 150 70-99 mg/dl White Blood Count 14.74 4.8-10.8 K/uL Red Blood Count 4.47 4.7-6.1 M/uL Hemoglobin 13.0 14.0-18.0 g/dL Hematocrit 38.4 42-52 % Mean Corpuscular Volume 85.9 80-100 fL Mean Corpuscular Hemoglobin 29.1 25-34 pg Mean Corpuscular Hemoglobin Concent 33.9 32-36 g/dl Platelet Count 337 130-400 K/uL Mean Platelet Volume 10.1 7.4-10.4 fL Neutrophils (%) (Auto) 79.8 % Lymphocytes (%) (Auto) 11.1 % Monocytes (%) (Auto) 8.1 % Eosinophils (%) (Auto) 0.0 % Basophils (%) (Auto) 0.1 % Neutrophils # (Auto) 11.76 1.4-6.5 K/uL Lymphocytes # (Auto) 1.63 1.2-3.4 K/uL Monocytes # (Auto) 1.20 0.11-0.59 K/uL Eosinophils # (Auto) 0.00 0-0.5 K/uL Basophils # (Auto) 0.02 0-0.2 K/uL RDW Standard Deviation 42.7 36.4-46.3 fL RDW Coefficient of Variation 13.6 11.5-14.5 % Immature Granulocyte % (Auto) 0.9 % Immature Granulocyte # (Auto) 0.13 0.00-0.02 K/uL Sodium Level 133 136-145 mmol/L Potassium Level 3.5 3.5-5.1 mmol/L Chloride Level 95 98-107 mmol/L Carbon Dioxide Level 30 21-32 mmol/L Anion Gap 8.0 3-11 mmol/L Blood Urea Nitrogen 18 7-18 mg/dl Creatinine 0.78 0.60-1.40 mg/dl Est Creatinine Clear Calc Drug Dose 139.3 ml/min Estimated GFR () 114.5 Estimated GFR (Non- 98.8 BUN/Creatinine Ratio 23.0 10-20 Random Glucose 142 70-99 mg/dl Estimated Average Glucose 131 mg/dl Hemoglobin A1c 6.2 4.5-5.6 % Calcium Level 9.1 8.5-10.1 mg/dl Magnesium Level 2.1 1.8-2.4 mg/dl Total Creatine Kinase 745 39-308 U/L Chemistry Specimen Hemolysis Microbiology Results 03/12/17 MRSA DNA Surveillance Screen - Final, Complete Specimen Negative for MRSA by DNA Probe
[2017-03-13] MEDS: WARFARIN SOD 5 MG TAB PO SCH (16:52)
--- NOTE | 2017-03-13 16:56 | ECHOCARDIOGRAM REPORT ---
*NOTICE TO RECEIVING CONSTITUTION PARTY AGENCY This information is strictly Confidential and protected under [place] law. [place] law prohibits you from making any further disclosure of this information unless further disclosure is expressly permitted by the written consent of the person to whom it pertains or is authorized by law. A general authorization for the release of medical or other information is not sufficient for this purpose. Hospital accepts no responsibility if the information is made available to any other person, INCLUDING THE PATIENT. Interpretation Summary * Name: ELIJAH VELA Study Date: 03/13/2017 12:35 PM BP: 167/88 mmHg * Patient Location: C.2T\S\S244\S\1 HR: 100 * : 1955 (M/d/yyyy) Gender: Male Height: 71 in * Age: 61 yrs Ethnicity: CA Weight: 268 lb * Ordering Physician: Ed Rosas * Referring Physician: Self, Referred * Performed By: Ayana Otero RCS * * Reason For Study: Valvular Heart Dz, Pneumonia * BSA: 2.4 m2 * -- Conclusions -- * The left ventricle is normal in size. * There is borderline concentric left ventricular hypertrophy. * No regional wall motion abnormalities noted. * Left ventricular systolic function is normal. * Ejection Fraction = 65-70%. * The left atrial size is normal. * There is a bioprosthetic aortic valve. * The prosthetic aortic valve appears to open well. * The gradient is normal for this prosthetic aortic valve. * The aortic root is normal size (s/p surgical repair) Procedure Details * A complete two-dimensional transthoracic echocardiogram was performed (2D, M-mode, Doppler and color flow Doppler). * The study was technically difficult. * A contrast injection of Definity was performed to improve assessment of LV function. * Contrast was injected into an intravenous site in the left arm. * One vial of Definity ultrasound contrast was diluted in normal saline to a total volume of 10 ml. A total of '2' ml of solution was administered during imaging. * Lot # [id number] of Definity utilized for procedure. * Expiration date EB. * The attending nurse who injected the contrast agent was Ayana Paniagua RN. Left Ventricle * The left ventricle is normal in size. * There is borderline concentric left ventricular hypertrophy. * Ejection Fraction = 65-70%. * Left ventricular systolic function is normal. * No regional wall motion abnormalities noted. Right Ventricle * The right ventricle is normal in size and function. Atria * The left atrial size is normal. * Right atrial size is normal. * No ASD detected; PFO is not assessed. Mitral Valve * There is mild mitral annular calcification. * There is no mitral valve stenosis. * There is trace mitral regurgitation. Tricuspid Valve * The tricuspid valve is normal. * There is no tricuspid stenosis. * There is trace tricuspid regurgitation. * Doppler findings do not suggest pulmonary hypertension. Aortic Valve * No aortic regurgitation is present. * There is a bioprosthetic aortic valve. * The prosthetic aortic valve appears to open well. * The gradient is normal for this prosthetic aortic valve. Pulmonic Valve * The pulmonic valve is not well visualized. Great Vessels * The aortic root is normal size. Pericardium/Pleural * There is no pericardial effusion. Great Vessels * Normal inferior vena cava diameter and respiratory variation suggests normal central venous pressure. MMode 2D Measurements and Calculations IVSd 1.1 cm IVSs 1.4 cm LVIDd 4.4 cm LVIDs 3.2 cm LVPWd 1.2 cm LVPWs 1.5 cm IVS/LVPW 0.90 FS 28.6 % EDV(Teich) 88.4 ml ESV(Teich) 39.6 ml EF(Teich) 55.3 % EDV(cubed) 86.1 ml ESV(cubed) 31.4 ml EF(cubed) 63.5 % % IVS thick 27.8 % % LVPW thick 20.1 % LV mass(C)d 181.5 grams LV mass(C)dI 76.0 grams/m\S\2 LV mass(C)s 154.8 grams LV mass(C)sI 64.8 grams/m\S\2 CO(Teich) 4.2 l/min CI(Teich) 1.7 l/min/m\S\2 SV(Teich) 48.9 ml SI(Teich) 20.5 ml/m\S\2 CO(cubed) 4.7 l/min CI(cubed) 1.9 l/min/m\S\2 SV(cubed) 54.7 ml SI(cubed) 22.9 ml/m\S\2 Ao root diam 3.4 cm Ao root area 9.1 cm\S\2 LA dimension 4.5 cm asc Aorta Diam 3.0 cm LA/Ao 1.3 LVAd ap4 38.9 cm\S\2 LVLd ap4 8.8 cm EDV(MOD-sp4) 139.0 ml LVAs ap4 24.2 cm\S\2 LVLs ap4 7.7 cm ESV(MOD-sp4) 60.8 ml EF(MOD-sp4) 56.3 % LVAd ap2 32.4 cm\S\2 LVLd ap2 8.5 cm EDV(MOD-sp2) 101.0 ml LVAs ap2 19.0 cm\S\2 LVLs ap2 7.3 cm ESV(MOD-sp2) 40.8 ml EF(MOD-sp2) 59.6 % CO(MOD-sp4) 6.6 l/min CI(MOD-sp4) 2.8 l/min/m\S\2 SV(MOD-sp4) 78.2 ml SI(MOD-sp4) 32.7 ml/m\S\2 CO(MOD-sp2) 5.1 l/min CI(MOD-sp2) 2.1 l/min/m\S\2 SV(MOD-sp2) 60.2 ml SI(MOD-sp2) 25.2 ml/m\S\2 Doppler Measurements and Calculations MV E max jose 163.7 cm/sec MV P1/2t max jose 159.8 cm/sec MV P1/2t 68.4 msec MVA(P1/2t) 3.2 cm\S\2 MV dec slope 684.6 cm/sec\S\2 MV dec time 0.19 sec Ao V2 max 142.7 cm/sec Ao max PG 8.1 mmHg Ao max PG (full) 2.0 mmHg LV V1 max PG 6.1 mmHg LV V1 max 123.8 cm/sec PA V2 max 108.6 cm/sec PA max PG 4.7 mmHg PI max jose 155.3 cm/sec PI max PG 9.6 mmHg PI dec slope 121.0 cm/sec\S\2 PI P1/2t 375.9 msec TR max jose 236.7 cm/sec
[2017-03-14] VITALS (7 sets, daily range): BP systolic 138–156; BP diastolic 78–92; PULSE 72–113; TEMP 36.7–36.9; O2SAT 93–97
[2017-03-14] MEDS: LEVALBUTEROL 1.25MG/0.5ML NEB INH SCH ×3 (01:50→14:08)
[2017-03-14] MEDS: IPRATROPIUM BROMIDE NEB SOLN 0.02% 2.5 ML VIAL INH SCH ×3 (01:50→14:08)
[2017-03-14 07:18] LABS: HEMATOCRIT 37.7 % (42-52); MEAN CELL VOLUME 85.7 fL (80-100); MEAN CORPUSCULAR HEMOGLOBIN 29.1 pg (25-34); MEAN PLATELET VOLUME 9.6 fL (7.4-10.4); PLATELET COUNT 369 K/uL (130-400); WHITE BLOOD COUNT 14.97 K/uL (4.8-10.8)
[2017-03-14 07:27] LABS: INR 1.2 (0.9-1.1); PROTHROMBIN TIME (PATIENT) 12.1 SECONDS (9.0-12.0)
[2017-03-14] MEDS: CARVEDILOL 25 MG TAB PO SCH (07:38)
[2017-03-14] MEDS: CIPROFLOXACIN HCL 0.3% OP SOLN 2.5 ML BTL OPR SCH ×2 (07:38→12:00)
[2017-03-14] MEDS: ASPIRIN 81 MG ECTAB PO SCH (07:38)
[2017-03-14 07:39] LABS: BASO % 0.2 %; BASO ABS # 0.03 K/uL (0-0.2); COMPLETE YES; EOS % 0.3 %; IG% 1.1 %; LYMPH % 19.1 %; LYMPH ABS # 2.86 K/uL (1.2-3.4); NEUT % 70.3 %
[2017-03-14] MEDS: LISINOPRIL 40 MG TAB PO SCH (07:39)
[2017-03-14] MEDS: DILTIAZEM HCL 120 MG EXT REL CAP PO SCH (07:39)
[2017-03-14] MEDS: MULTIVITAMIN TAB PO SCH (07:39)
[2017-03-14] MEDS: CHOLECALCIFEROL 1000 INTER.UNIT TAB PO SCH (07:39)
[2017-03-14] MEDS: GABAPENTIN 300 MG CAP PO SCH (07:39)
[2017-03-14] MEDS: ENOXAPARIN 120 MG/0.8 ML SYR SQ SCH (07:40)
[2017-03-14] MEDS: ALLOPURINOL 100 MG TAB PO SCH (07:40)
[2017-03-14] MEDS: NSS + 20MEQ KCL 1000ML 1,000 ML IV SCH (07:41)
[2017-03-14] MEDS: LEVOFLOXACIN / D5W 750 MG in PREMIXED IN D5W 150 ML IV SCH (07:41)
[2017-03-14] MEDS: INSULIN ASPART 100 UNITS/ML 3 ML PEN SC SCH ×2 (07:46→11:55)
[2017-03-14 07:49] LABS: BUN/CREATININE RATIO 25.2 (10-20); CALCIUM 8.5 mg/dl (8.5-10.1); CREATININE 0.8 mg/dl (0.60-1.40); POTASSIUM 3.6 mmol/L (3.5-5.1)
[2017-03-14 07:52] LABS: ALB/GLOB RATIO 0.6 (0.9-2)
[2017-03-14] MEDS ORDERED: POTASSIUM CHLORIDE 20 MEQ TABCR PO STA (08:48)
--- NOTE | 2017-03-14 14:20 | PROGRESS NOTE ---
DATE: 03/14/2017 CARDIOLOGY CONSULTATION FOLLOWUP NOTE The patient seen in examination. Chart, medications, telemetry reviewed. SUBJECTIVE: The patient feels substantially improved since hospitalization. He remains in atrial fibrillation with mildly elevated ventricular response rate. Notes no chest pain, shortness of breath, orthopnea. Notes no sense of tachypalpitations. He has been anticoagulated with subcutaneous Lovenox since admission. Blood pressures have come under better control. Notes cough is gradually improving. OBJECTIVE: VITAL SIGNS: Heart rate is 100, blood pressure is 138/78. HEENT: Normocephalic, atraumatic. NECK: Thick. There is no distinct jugular venous distention. LUNGS: Reveal few scattered wheezes at the right base. CARDIOVASCULAR: Irregularly irregular with a grade 1/6 systolic murmur. There is no diastolic murmur. ABDOMEN: Soft, nontender. EXTREMITIES: Without cyanosis or clubbing. There is no peripheral edema. LABORATORY DATA: INR is 1.2. Sodium is 135, potassium is 3.6, chloride is 100, bicarbonate 26, BUN is 20, creatinine 0.8. White cell count is 14.9, hemoglobin is 12.8. IMPRESSION: A 61-year-old male with large right middle and lower lobe pneumonia, complicated by new onset atrial fibrillation of uncertain duration with underlying history of prior aortic valve replacement and aortic root repair. RECOMMENDATIONS: Will increase carvedilol to 50 mg twice per day for heart rate and blood pressure control. Anticoagulation has been begun with oral warfarin, would bridge to full anticoagulant therapy with planned follow up with Dr. Ingram in 1 month's time to assess consideration for return to sinus rhythm versus ongoing rate control anticoagulation regimen. ____
--- NOTE | 2017-03-14 14:34 | Progress Note ---
Internal Med Progress Note Date of Service: Mar 14, 2017. Provider Documentation: SUBJECTIVE: Patient reports coughing is getting better but still present, Voice is hoarse sounding from the coughing, Denies chest pain, Denies breathing difficulties OBJECTIVE: Exam: General Appearance: no acute distress, coughing Head: normocephalic, atraumatic Eyes: EOMI Neck: supple, no JVD, trachea midline Respiratory/Chest: chest non-tender, no respiratory distress, no accessory muscle use, fair air entry Cardiovascular: no murmur, normal peripheral pulses, irregularly irregular Abdomen/GI: normal bowel sounds, non tender, soft Extremities/Musculoskelatal: normal inspection, no calf tenderness, normal capillary refill, no pedal edema, normal range of motion, non-tender Neurologic/Psych: alert, normal mood/affect, oriented x 3 Skin: normal color, warm/dry, no rash ASSESSMENT & PLAN: CXR on 03/12/17 "There are postsurgical changes of midline sternotomy. There are extensive right middle and lower lung zone airspace opacity suspicious for pneumonia. There is mild elevation left hemidiaphragm. Linear left basilar opacities are likely atelectatic. There is no overt failure. IMPRESSION: Extensive right middle and lower lung zone airspace opacities suspicious for pneumonia" CXR on 03/13/17 "Median sternotomy wires intact. Atherosclerosis of aortic arch. Abandoned epicardial pacing lead projects over the right atrium, which appears enlarged. Overall stable appearance of the patchy bilateral pulmonary opacities in the mid and lower lungs, right greater than left. No large pleural effusion or pneumothorax. PICC to Osseous structures normal. Upper abdomen normal. IMPRESSION: Stable patchy bilateral pulmonary opacities with a mid to basilar predominance, right greater than left. This is consistent with multifocal pneumonia versus aspiration/aspiration pneumonitis." Community acquire pneumonia: MRSA swab negative, f/u blood cultures from 03/13/17 negative, sputum cultures normal khushboo, mycoplasma and legionella lab pending Patient given levaquin / dexamethasone / duoneb in the ER, antibiotics of Levaquin IV and cefepime IV (both started on 03/12/17), cefepime stopped on 03/18, patient continued IV Levaquin until 03/14/17. Continue Levaquin 750 mg once a day as oral medication on 03/15/17 and 03/16/17 to complete a total of 5 day antibiotic course for community acquired pneumonia Atrial Fibrillation Pt with hx atrial fibrillation after AVR in 2009, treated with amiodarone x 3 months no further recurrences. He was found on ER presentation to be in atrial fibrillation with controlled ventricular response rate on this admission, Continue with Lovenox 120 mg q12 hours and bridge to Coumadin, will continue to follow up with cardiology on longer term anticoagulation if needed, Continue Diltiazem for rate control, Cardiology service increased carvedilol on 03/13/17 Final Cardiology recommendations 03/14/[address] Rosas "increase carvedilol to 50 mg twice per day for heart rate and blood pressure control. Anticoagulation has been begun with oral warfarin, would bridge to full anticoagulant therapy with planned follow up with Dr. Ingram in 1 month' s time to assess consideration for return to sinus rhythm versus ongoing rate control anticoagulation regimen" As per Dr. Rosas patient can just take Coumadin for anticoagulation at home Hypertension -at home to take carvedilol, diltiazem, lisinopril, HCTZ HYPOKALEMIA and Hypomagnesemia on admission -hypomagnesemia resolved after supplementation -hypokalemia resolving after supplementation, serum potassium 3.5 on 03/13/17 and additional 40 meq potassium ordered; serum potassium better 3.6 on 03/14/17 , additional 40 meq or potassium given Elevated Creatinine Kinase with normal renal function -Creatine Kinase downtrending, hydration as tolerated DM II: HbA1c 6.1 -continue home medications History of gout -continue allopurinol CONJUNCTIVITIS - R EYE -continue ciprofloxacin eye drops for 5 more days DVT PROPHYLAXIS Coumadin 5 mg daily Discharge follow up primary care: 03/20/17 11AM with Galdino Francisco MD [facility] anticoagulation clinic appointment to be made with the patient by telephone cardiology clinic: 04/09/2017 at 12:45 PM with Sean Ingram, DO Cardiology, [facility] questions on appointment times, please call [phone] Vital Signs: Date Time Temp Pulse Resp B/P (MAP) Pulse Ox O2 Delivery O2 Flow Rate FiO2 03/14/17 14:08 72 16 95 Room Air 03/14/17 12:00 Room Air 03/14/17 11:27 36.7 100 18 138/78 (98) 93 Room Air 03/14/17 08:00 Room Air 03/14/17 07:44 36.9 91 18 156/92 (113) 93 Room Air 03/14/17 06:59 93 16 97 Room Air 03/14/17 04:02 Room Air 03/14/17 03:42 36.7 109 20 143/90 (107) 93 Room Air 03/14/17 01:50 113 16 96 Nasal Cannula 2.0 03/14/17 00:00 Nasal Cannula 2.0 03/13/17 23:08 36.8 87 19 157/96 (116) 96 Nasal Cannula 2.0 03/13/17 20:00 Room Air 03/13/17 19:24 36.6 102 22 159/93 (115) 92 Room Air 03/13/17 18:48 97 16 99 Room Air 03/13/17 16:00 Nasal Cannula 2.0 03/13/17 15:27 36.9 88 20 150/77 (101) 94 Room Air Lab Results: Results Past 24 Hours Test 03/13/17 15:54 03/13/17 19:56 03/13/17 21:30 03/14/17 06:49 Range/Units Bedside Glucose 93 126 101 70-99 mg/dl Test 03/14/17 07:00 03/14/17 11:19 Range/Units White Blood Count 14.97 4.8-10.8 K/uL Red Blood Count 4.40 4.7-6.1 M/uL Hemoglobin 12.8 14.0-18.0 g/dL Hematocrit 37.7 42-52 % Mean Corpuscular Volume 85.7 80-100 fL Mean Corpuscular Hemoglobin 29.1 25-34 pg Mean Corpuscular Hemoglobin Concent 34.0 32-36 g/dl Platelet Count 369 130-400 K/uL Mean Platelet Volume 9.6 7.4-10.4 fL Neutrophils (%) (Auto) 70.3 % Lymphocytes (%) (Auto) 19.1 % Monocytes (%) (Auto) 9.0 % Eosinophils (%) (Auto) 0.3 % Basophils (%) (Auto) 0.2 % Neutrophils # (Auto) 10.51 1.4-6.5 K/uL Lymphocytes # (Auto) 2.86 1.2-3.4 K/uL Monocytes # (Auto) 1.35 0.11-0.59 K/uL Eosinophils # (Auto) 0.05 0-0.5 K/uL Basophils # (Auto) 0.03 0-0.2 K/uL RDW Standard Deviation 42.8 36.4-46.3 fL RDW Coefficient of Variation 13.7 11.5-14.5 % Immature Granulocyte % (Auto) 1.1 % Immature Granulocyte # (Auto) 0.17 0.00-0.02 K/uL Prothrombin Time 12.1 9.0-12.0 SECONDS Prothromb Time International Ratio 1.2 0.9-1.1 Sodium Level 135 136-145 mmol/L Potassium Level 3.6 3.5-5.1 mmol/L Chloride Level 100 98-107 mmol/L Carbon Dioxide Level 26 21-32 mmol/L Anion Gap 8.0 3-11 mmol/L Blood Urea Nitrogen 20 7-18 mg/dl Creatinine 0.80 0.60-1.40 mg/dl Est Creatinine Clear Calc Drug Dose 135.8 ml/min Estimated GFR () 113.3 Estimated GFR (Non- 97.8 BUN/Creatinine Ratio 25.2 10-20 Random Glucose 100 70-99 mg/dl Calcium Level 8.5 8.5-10.1 mg/dl Total Bilirubin 0.4 0.2-1 mg/dl Aspartate Amino Transf (AST/SGOT) 76 15-37 U/L Alanine Aminotransferase (ALT/SGPT) 102 12-78 U/L Alkaline Phosphatase 73 45-117 U/L Total Protein 6.9 6.4-8.2 gm/dl Albumin 2.6 3.4-5.0 gm/dl Globulin 4.3 2.5-4.0 gm/dl Albumin/Globulin Ratio 0.6 0.9-2 Bedside Glucose 123 70-99 mg/dl Microbiology Results 03/13/17 Gram Stain - Final, Resulted 03/13/17 Sputum Culture - Preliminary, Resulted SCANT NORMAL [id number] Present, Final Rep...
[2017-03-14] MEDS ORDERED: CRG25 PO (14:44)
[2017-03-14] MEDS ORDERED: CMD5 PO (14:44)
[2017-03-14] MEDS ORDERED: CLXOPS3 OPR (14:46)
[2017-03-14] MEDS ORDERED: LEVO-459 OR (14:53)
--- NOTE | 2017-03-14 15:00 | Discharge Instructions ---
Discharge Instructions Date of Service Mar 14, 2017. Admission Reason for Admission: Pneumonia Discharge Discharge Diagnosis / Problem: community acquired pneumonia, atrial fibrillation, conjunctivitis Discharge Goals Goal(s): Improve function, Improve disease control Activity Recommendations Activity Limitations: per Instructions/Follow-up section Lifting Limitations: until after follow-up appointment Exercise/Sports Limitations: until after follow-up appointment Shower/Bathe: no limitations . Instructions / Follow-Up Instructions / Follow-Up CXR on 03/12/17 "There are postsurgical changes of midline sternotomy. There are extensive right middle and lower lung zone airspace opacity suspicious for pneumonia. There is mild elevation left hemidiaphragm. Linear left basilar opacities are likely atelectatic. There is no overt failure. IMPRESSION: Extensive right middle and lower lung zone airspace opacities suspicious for pneumonia" CXR on 03/13/17 "Median sternotomy wires intact. Atherosclerosis of aortic arch. Abandoned epicardial pacing lead projects over the right atrium, which appears enlarged. Overall stable appearance of the patchy bilateral pulmonary opacities in the mid and lower lungs, right greater than left. No large pleural effusion or pneumothorax. PICC to Osseous structures normal. Upper abdomen normal. IMPRESSION: Stable patchy bilateral pulmonary opacities with a mid to basilar predominance, right greater than left. This is consistent with multifocal pneumonia versus aspiration/aspiration pneumonitis." Community acquire pneumonia: MRSA swab negative, f/u blood cultures from 03/13/17 negative, sputum cultures normal wilberto, mycoplasma and legionella lab pending Patient given levaquin / dexamethasone / duoneb in the ER, antibiotics of Levaquin IV and cefepime IV (both started on 03/12/17), cefepime stopped on 03/18, patient continued IV Levaquin until 03/14/17. Continue Levaquin 750 mg once a day as oral medication on 03/15/17 and 03/16/17 to complete a total of 5 day antibiotic course for community acquired pneumonia Atrial Fibrillation Pt with hx atrial fibrillation after AVR in 2009, treated with amiodarone x 3 months no further recurrences. He was found on ER presentation to be in atrial fibrillation with controlled ventricular response rate on this admission, Continue with Lovenox 120 mg q12 hours and bridge to Coumadin, will continue to follow up with cardiology on longer term anticoagulation if needed, Continue Diltiazem for rate control, Cardiology service increased carvedilol on 03/13/17 Final Cardiology recommendations 03/14/[address] Rosas "increase carvedilol to 50 mg twice per day for heart rate and blood pressure control. Anticoagulation has been begun with oral warfarin, would bridge to full anticoagulant therapy with planned follow up with Dr. Ingram in 1 month' s time to assess consideration for return to sinus rhythm versus ongoing rate control anticoagulation regimen" As per Dr. Rosas patient can just take Coumadin for anticoagulation at home Hypertension -at home to take carvedilol, diltiazem, lisinopril, HCTZ HYPOKALEMIA and Hypomagnesemia on admission -hypomagnesemia resolved after supplementation -hypokalemia resolving after supplementation, serum potassium 3.5 on 03/13/17 and additional 40 meq potassium ordered; serum potassium better 3.6 on 03/14/17 , additional 40 meq or potassium given Elevated Creatinine Kinase with normal renal function -Creatine Kinase downtrending, hydration as tolerated DM II: HbA1c 6.1 -continue home medications History of gout -continue allopurinol CONJUNCTIVITIS - R EYE -continue ciprofloxacin eye drops for 5 more days DVT PROPHYLAXIS Coumadin 5 mg daily Discharge follow up primary care: 03/20/17 11AM with Galdino Francisco MD [facility] anticoagulation clinic appointment to be made with the patient by telephone cardiology clinic: 04/09/2017 at 12:45 PM with Sean Ingram, DO Cardiology, [facility] questions on appointment times, please call [phone] Current Hospital Diet Patient's current hospital diet: AHA Diet (Heart Healthy), Diabetes Type 2 Diet Discharge Diet Recommended Diet: AHA Diet (Heart Healthy), Diabetes Type 2 Diet Pending Studies Studies pending at discharge: yes List of pending studies: mycoplasma, legionella labs Laboratory Results Hemoglobin A1c Test 03/13/17 06:38 Range/Units Estimated Average Glucose 131 mg/dl Hemoglobin A1c 6.2 H 4.5-5.6 % Medical Emergencies . Who to Call and When: Medical Emergencies: If at any time you feel your situation is an emergency, please call 911 immediately. . Non-Emergent Contact Non-Emergency issues call your: Primary Care Provider, Communications Technician . . "Provider Documentation" section prepared by Gerardo Tong. . VTE Core Measure Inpt VTE Proph given/why not?: Warfarin (Coumadin)
--- NOTE | 2017-03-14 15:06 | Discharge Summary ---
Discharge Summary Date of Service Mar 14, 2017. Discharge Summary Admission Date: Mar 12, 2017 at 09:30 Discharge Date: Mar 14, 2017 Principal Diagnosis: community acquired pneumonia, conjunctivitis, atrial fibrillation, anticoagulation medications - coumadin, INR checking Medication Reconciliation New Medications: Levofloxacin (Levaquin) 500 Mg Tab 750 MG OR DAILY for 2 Days, #3 TAB start this medication on 03/15/17 and finish this medication on 03/16/17 Carvedilol (Carvedilol) 25 Mg Tab 37.5 MG PO BID for 30 Days, #90 TAB Ciprofloxacin HCl (Ciprofloxacin HCl) 37 Drops/2.5 Ml Soln 2 DROPS OPR Q4HWA for 5 Days, #1 UNIT Warfarin Sod (Coumadin) 5 Mg Tab 5 MG PO DAILY@16 for 30 Days, #30 TAB Continued Medications: Allopurinol (Zyloprim) 100 Mg Tab 100 MG PO DAILY Aspirin (Aspirin 81) 81 Mg Tab 1 TAB PO DAILY Cholecalciferol (Vitamin D 1000 Unit) 1,000 Unit Cap 2 CAP PO DAILY, CAP Dextromethorphan-Acetaminophen (Coricidin Hbp Flu) 1 Tab Tab 1 TAB PO UD Diltiazem Hcl Extended Release (Diltiazem Hcl) 240 Mg Cap 240 MG PO DAILY Gabapentin (Neurontin) 300 Mg Cap 300 MG PO DAILY Hydrochlorothiazide (Hydrochlorothiazide) 25 Mg Tab 25 MG PO DAILY Lisinopril (Zestril) 40 Mg Tab 40 MG PO DAILY Metformin Hcl (Glucophage) 1,000 Mg Tab 1000 MG PO BID Multivitamin (Multivitamin) Tab 1 TAB PO DAILY, TAB [place]-3 Fatty Acids (Fish Oil) 1,200 Mg Cap 1200 MG PO DAILY Discontinued Medications: Carvedilol (Coreg) 25 Mg Tab 25 MG PO BID Oseltamivir Phosphate (Tamiflu) 75 Mg Cap 75 MG PO BID finished course 03/11/17 Admission Information HPI (per Admitting provider): Pt is 61 y/o M with PMH HTN, dyslipidemia, DM II, hx thoracic aneurysm, hx aortic valve replacement with a-fib post-op responded well to amiodarone x 3 months presented to ER with c/o cough x 6 days. Pt reports 6 days ago started with cough, tactile fever, myalgias and went to PCP and clinically dx with influenza and started on Tamiflu and Coricidin HBP. Pt finished Tamiflu yesterday. Pt states used Flonase for a couple of days, however got epistaxis so stopped, no further epistaxis. Has been using saline nasal spray also. He reports feeling worse with worsening cough, rhinorrhea, continued tactile fevers , myalgias, fatigue, decreased appetite. Has been drinking fluids, but not eating much. Has PASCUAL with coughing hard. Cough is productive yellow color sputum. Reports this morning woke up with R eye redness, purulent discharge from right eye. Pt did not take his morning meds today. Denies N/V/D/C, dizziness, syncope, vision changes, photophobia, eye injury, neck pain, CP, SOB , orthopnea, palpitations, hemoptysis, sore throat, choking, otalgia, abdominal pain, paresthesias, extremity weakness, extremity edema, rashes, urinary symptoms. In ER pt febrile 39.1, given tylenol and temp down to 36.9. Tachy at 115 down to 93 after 1L NSS. R: 24 intially down to 20 after duoneb tx. O2 90% on RA to 94% on 2L NC. BP: 168/98. EKG: a-fib rate 101. Negative troponin, CPK: 1129. K: 2.6, Pt given potassium 60. WBC: 14, Lactic acid: 1.4. Pending blood cultures. negative rapid influenza. Pt given Levaquin 750mg IV, dexamethasone, lovenox 120mg. Physical Exam (per Admitting): General Appearance: WD/WN, no apparent distress, + pertinent finding (ill appearing, non-toxic appearance) Head: normocephalic, atraumatic Eyes: PERRL, EOMI, + pertinent finding (right eye: conjuntiva erythema and mild edema, +purulent discharge. No photophobia. No orbital erythema or edema or tenderness to palpation) ENT: TMs normal, pharynx normal, + pertinent finding (+post nasal drip) Neck: supple, no JVD, trachea midline Respiratory/Chest: chest non-tender, no respiratory distress, no accessory muscle use, + pertinent finding (mild diminished RML, RLL) Cardiovascular: no murmur, normal peripheral pulses, + irregularly irregular (rate 94) Abdomen/GI: normal bowel sounds, non tender, soft Extremities/Musculoskelatal: normal inspection, no calf tenderness, normal capillary refill, no pedal edema, normal range of motion, non-tender Neurologic/Psych: alert, normal mood/affect, oriented x 3 Skin: normal color, warm/dry, no rash Hospital Course CXR on 03/12/17 "There are postsurgical changes of midline sternotomy. There are extensive right middle and lower lung zone airspace opacity suspicious for pneumonia. There is mild elevation left hemidiaphragm. Linear left basilar opacities are likely atelectatic. There is no overt failure. IMPRESSION: Extensive right middle and lower lung zone airspace opacities suspicious for pneumonia" CXR on 03/13/17 "Median sternotomy wires intact. Atherosclerosis of aortic arch. Abandoned epicardial pacing lead projects over the right atrium, which appears enlarged. Overall stable appearance of the patchy bilateral pulmonary opacities in the mid and lower lungs, right greater than left. No large pleural effusion or pneumothorax. PICC to Osseous structures normal. Upper abdomen normal. IMPRESSION: Stable patchy bilateral pulmonary opacities with a mid to basilar predominance, right greater than left. This is consistent with multifocal pneumonia versus aspiration/aspiration pneumonitis." Community acquire pneumonia: MRSA swab negative, f/u blood cultures from 03/13/17 negative, sputum cultures normal wilberto, mycoplasma and legionella lab pending Patient given levaquin / dexamethasone / duoneb in the ER, antibiotics of Levaquin IV and cefepime IV (both started on 03/12/17), cefepime stopped on 03/18, patient continued IV Levaquin until 03/14/17. Continue Levaquin 750 mg once a day as oral medication on 03/15/17 and 03/16/17 to complete a total of 5 day antibiotic course for community acquired pneumonia Atrial Fibrillation Pt with hx atrial fibrillation after AVR in 2009, treated with amiodarone x 3 months no further recurrences. He was found on ER presentation to be in atrial fibrillation with controlled ventricular response rate on this admission, Continue with Lovenox 120 mg q12 hours and bridge to Coumadin, will continue to follow up with cardiology on longer term anticoagulation if needed, Continue Diltiazem for rate control, Cardiology service increased carvedilol on 03/13/17 Final Cardiology recommendations 03/14/[address] Rosas "increase carvedilol to 50 mg twice per day for heart rate and blood pressure control. Anticoagulation has been begun with oral warfarin, would bridge to full anticoagulant therapy with planned follow up with Dr. Ingram in 1 month' s time to assess consideration for return to sinus rhythm versus ongoing rate control anticoagulation regimen" As per Dr. Rosas patient can just take Coumadin for anticoagulation at home Hypertension -at home to take carvedilol, diltiazem, lisinopril, HCTZ HYPOKALEMIA and Hypomagnesemia on admission -hypomagnesemia resolved after supplementation -hypokalemia resolving after supplementation, serum potassium 3.5 on 03/13/17 and additional 40 meq potassium ordered; serum potassium better 3.6 on 03/14/17 , additional 40 meq or potassium given Elevated Creatinine Kinase with normal renal function -Creatine Kinase downtrending, hydration as tolerated DM II: HbA1c 6.1 -continue home medications History of gout -continue allopurinol CONJUNCTIVITIS - R EYE -continue ciprofloxacin eye drops for 5 more days DVT PROPHYLAXIS Coumadin 5 mg daily Discharge follow up primary care: 03/20/17 11AM with Galdino Francisco MD [facility] anticoagulation clinic appointment to be made with the patient by telephone cardiology clinic: 04/09/2017 at 12:45 PM with Sean Ingram, DO Cardiology, [facility] questions on appointment times, please call [phone] Total time spent on discharge = This includes examination of the patient, discharge planning, medication reconciliation, and communication with other providers. Discharge Instructions see above
[2017-03-14] MEDS: WARFARIN SOD 5 MG TAB PO SCH (15:09)
[2017-03-15 13:27] LABS: LEGIONELLA ANTIGEN NOT DETECTED (NOT DETECTED)
== END 2017-03-14 15:15 | disposition home or self-care (01) | DRG 308 ==
LOC: C.EDB 07:57 → C.2T 09:30 → CANRESERV 09:50 → ENRESERV 09:50 → CANRESERV 09:51 → ENRESERV 09:51 → EDBEDREQ 10:51
PROVIDERS: ADMIT Internal Medicine; ATTEND Hospitalist
DX: I48.91 Unspecified atrial fibrillation (principal); J18.9 Pneumonia, unspecified organism; E87.1 Hypo-osmolality and hyponatremia; E87.6 Hypokalemia; E83.42 Hypomagnesemia; H10.9 Unspecified conjunctivitis; I11.9 Hypertensive heart disease without heart failure; E11.9 Type 2 diabetes mellitus without complications; E78.5 Hyperlipidemia, unspecified; M10.9 Gout, unspecified; Z79.899 Other long term (current) drug therapy; Z79.84 Long term (current) use of oral hypoglycemic drugs; Z79.82 Long term (current) use of aspirin; Z95.2 Presence of prosthetic heart valve; Z87.74 Personal history of (corrected) congenital malformations of heart and circulatory system; Z80.42 Family history of malignant neoplasm of prostate; Z80.3 Family history of malignant neoplasm of breast

== ENCOUNTER 2017-07-20 15:01 | Inpatient (IN) | payer OTHER ==
[~2017-07-20] VITALS: Ht 185.4 cm; Wt 122.3 kg
[~2017-07-20 15:01] MED LIST changes: +ALLO100T PO; -ASPCH81 PO; +ASPI-435 PO; +CHOL100027 PO; +CLXOPS3 OPR; +CMD5 PO; -CRD200 PO; +CRG25 PO; +DEXTTAB PO; +DILT240C75 PO; -FRRS300 PO; +GABA-113 PO; -GLC500 PO; -HYDC25 PO; +HYDR25TA5 PO; +LEVO-459 OR; +LISI40TA PO; -LRT5 PO; +METF-384 PO; -METO100T14 PO; +OMEG120013 PO
[2017-07-20] MEDS ORDERED: CEFEPIME IV 2,000 MG in DEXTROSE 5% 100ML 100 ML IV STA (16:51)
[2017-07-20] MEDS ORDERED: SODIUM CHLORIDE 0.9% 1000ML 2,000 ML IV STA (16:51)
--- NOTE | 2017-07-20 17:15 | EMERGENCY ROOM VISIT NOTE ---
ED Visit Note First contact with patient: 16:31 CHIEF COMPLAINT: Fevers and chills HISTORY OF PRESENTING ILLNESS: This is a 61-year-old male with past medical history of atrial fibrillation on Coumadin, aortic porcine valve replacement in 2009, hypertension and type II diabetes, who presents to the emergency department with complaint of fevers and chills that started abruptly this morning around 4 AM. Patient states that he woke up from sleep shaking with chills. He has had fevers up to 103 off and on today. He has been taking Tylenol, his last dose was 1500 mg at 3 PM today. Patient states that he went to [facility] today, where they did blood work, flu swab, chest x- ray, and sent blood cultures. Patient states that they sent him home, but later called him and told him to go to the emergency department for further evaluation. He does not know why they told him to come in. Patient states that he has continued to have shaking chills and fevers off and on. He denies any other symptoms, including cough, sore throat, congestion, chest pain, headaches, neck pain or stiffness, shortness of breath, dizziness or syncope, abdominal pain, nausea or vomiting, diarrhea, dysuria or urinary frequency, open wounds or unusual rash. He denies any joint pain or swelling. He denies any known insect bites, but states take exposure as possible. He denies any recent travel. He denies any recent antibiotics. He denies any recent hospitalizations. He denies any known sick contacts. REVIEW OF SYSTEMS: A complete 10 point review of systems was reviewed with the patient with pertinent positives and negatives as per history of present illness. All else were negative. PAST MEDICAL HISTORY: Reviewed in chart. SOCIAL HISTORY: Lives at home with his . Denies tobacco use, alcohol or recreational drug use. ALLERGIES: No known allergies. PHYSICAL EXAM: CONSTITUTIONAL: Pleasant and cooperative. No acute distress, but appears uncomfortable. Mild rigors. Mildly dehydrated. Pale. HEENT: Normocephalic, atraumatic. Pupils equal, round and reactive to light, EOMI. TMs normal. Pharynx normal. Tacky mucous membranes. NECK: Supple, full active range of motion without discomfort. No cervical adenopathy. RESPIRATORY: Clear to auscultation bilaterally with no wheezing, crackles, rhonchi or stridor. Equal expansion bilaterally. CARDIOVASCULAR: Regular rate and rhythm. 3/6 systolic murmur. No rubs or gallops. Normal peripheral perfusion. No edema. GASTROINTESTINAL: Soft, nontender, nondistended. No rebound tenderness or guarding. No palpable masses or HSM. Bowel sounds present in all quadrants. MUSCULOSKELETAL: Full range of motion of all joints without discomfort. INTEGUMENTARY: No rash or other significant dermatologic conditions noted. NEUROLOGIC: Alert and oriented X 4 with normal affect. Cranial nerves II-XII grossly intact. No focal neurologic deficits noted. Normal strength and sensation in all 4 extremities. Normal speech. Normal gait observed. ED COURSE AND MEDICAL DECISION MAKING: CC: Patient presenting with complaint of fevers and shaking chills DIFFERENTIAL DIAGNOSIS: Includes, but not limited to sepsis, bacteremia, endocarditis, influenza, pneumonia, viral illness, Lyme infection, dehydration, among others. INTERPRETATION OF LABS: Leukocytosis with left shift, no anemia, mild hyponatremia/hypochloremia, no other significant electrolyte abnormalities, renal function within normal limits, liver enzymes within normal limits, normal lipase. Coagulation factors slightly subtherapeutic on Coumadin. Elevated lactic acid. Blood and urine cultures pending. Negative troponin. Negative Lyme testing. Notable from outpatient labs that patient was NEGATIVE for influenza A/B. IMAGING: Chest x-ray report from clinic this morning was reviewed, noting a stable cardiomediastinal silhouette and no acute process. EKG: Shows normal sinus rhythm with a rate of 94 bpm, T-wave inversions noted in the anterior and lateral leads, when compared to previous EKG from 2016 this appears to be new by my interpretation. MEDICATION RECONCILIATION: I attest that I have personally reviewed the patient 's current medication list. INITIAL VITAL SIGNS REVIEW: I reviewed the patient's initial vital signs and interpret them as follows: T: Afebrile; BP: Hypertensive; HR: Tachycardic; RR : Within normal limits; Pulse Ox: Within normal limits on room air. Blood pressure screening: The patient was found to have an elevated blood pressure and was referred to the inpatient hospitalist team for further management. SUMMARY: Patient was evaluated at bedside, history and physical exam performed. Patient is alert and oriented, in no acute distress, but appears unwell, with shaking rigors, pale, and appears mildly dehydrated. Patient does not complain of any other symptoms besides the fevers and chills. He denies any respiratory symptoms, GI symptoms, or urinary symptoms. No joint pain or swelling noted on exam. No unusual rashes noted on exam. Neurologic exam is normal and the patient is fully alert and oriented. I received outpatient records from the patient's visit this morning, including labs, UA, chest x-ray, and visit notes, which I did review. Orders were placed at bedside for labs, UA and urine culture, blood cultures 2 , lactic acid level, 2 L fluid bolus for hydration, IV cefepime for broad- spectrum antibiotic coverage given concern for possible sepsis of unknown etiology. Patient discussed with Dr. Green, who agrees with my assessment and plan. Labs and imaging reviewed as above, notable for increasing leukocytosis when compared to outpatient labs from this morning. Patient was noted to spike a fever again to 38.7, he most recently took 1500 mg of Tylenol only a few hours ago, is unable to take NSAIDs due to being on Coumadin. Given the patient's fever, tachycardia with heart rate > 90 bpm, leukocytosis, and unclear source for infection, I feel the patient warrants admission for further evaluation and management. I spoke with Jeimy Henderson PA-C with the hospitalist team, who agrees to evaluate patient for admission. Patient reassessed multiple times throughout ED stay, he has remained stable, and states he is feeling somewhat improved with IV fluids. Patient was updated on all results and plan for admission, he verbalized understanding and was agreeable to this plan. The patient was stable at time of admission. Problem List Medical Problems: (1) Atrial fibrillation Status: Chronic (2) DM type 2 (diabetes mellitus, type 2) Status: Chronic (3) Dyslipidemia Status: Chronic (4) Gout Status: Chronic (5) HTN (hypertension) Status: Chronic Surgical Problems: (1) H/O aortic valve replacement Permanent Comment: #27 Freestyle porcine prosthesis with Bentall procedure and # 28 Sy shield graft repair of the aortic root by Dr. Velasco at [facility] in [place], [place] - 12/27/09 Status: Chronic (2) History of tonsillectomy Status: Chronic (3) History of vasectomy Status: Chronic (4) Hx of tonsillectomy Status: Resolved (5) Hx of vasectomy Status: Resolved Current/Historical Medications Scheduled Allopurinol (Zyloprim), 100 MG PO DAILY Amiodarone Hcl (Cordarone), 1 TAB PO DAILY Aspirin (Aspirin 81), 1 TAB PO DAILY Carvedilol (Coreg), 37.5 MG PO BID Cholecalciferol (Vitamin D 1000 Unit), 2 CAP PO DAILY Furosemide (Lasix), 40 MG PO DAILY Gabapentin (Neurontin), 300 MG PO HS Lisinopril (Zestril), 40 MG PO DAILY Metformin Hcl (Glucophage), 1,000 MG PO BID Multivitamin (Multivitamin), 1 TAB PO DAILY [id number] Ethyl Esters (Wasco-3), 2 CAP PO BID Warfarin Sodium (Coumadin), 5 MG PO SuTuTh Warfarin Sodium (Coumadin), 2.5 MG PO MoWeFrSa Allergies Coded Allergies: No Known Allergies (Unverified , 07/20/17) Vital Signs Date Time Temp Pulse Resp B/P (MAP) Pulse Ox O2 Delivery O2 Flow Rate FiO2 07/20/17 19:01 92 27 152/61 94 07/20/17 18:46 97 22 95 07/20/17 18:31 100 28 163/68 93 07/20/17 18:26 38.7 95 24 154/76 95 Room Air 07/20/17 18:16 94 36 95 07/20/17 18:01 93 30 154/76 97 07/20/17 17:59 93 07/20/17 17:57 162/83 07/20/17 17:56 94 15 162/83 96 Room Air 07/20/17 15:38 37.2 91 20 149/76 95 Room Air 07/20/17 00:00 Room Air Laboratory Results Test 07/20/17 17:40 Activated Partial Thromboplast Time 35.9 SECONDS (21.0-31.0) Partial Thromboplastin Ratio 1.4 Total Bilirubin 1.0 mg/dl (0.2-1) Direct Bilirubin 0.2 mg/dl (0-0.2) Aspartate Amino Transf (AST/SGOT) 30 U/L (15-37) Alanine Aminotransferase (ALT/SGPT) 52 U/L (12-78) Alkaline Phosphatase 67 U/L (45-117) Troponin I < 0.015 ng/ml (0-0.045) Total Protein 7.6 gm/dl (6.4-8.2) Albumin 4.1 gm/dl (3.4-5.0) Lipase 104 U/L (73-393) Procalcitonin 0.84 ng/ml (0-0.5) Lyme Disease IgG Antibody NEG (NEG) Lyme Disease IgM Antibody NEG (NEG) Monoscreen NEG (NEG) Medications Administered Medications (Trade) Dose Ordered Sig/Mervin Route Start Time Stop Time Status Last Admin Dose Admin Sodium Chloride 2,000 ml @ 999 mls/hr Q2H1M STAT IV 07/20/17 16:51 07/20/17 18:53 DC 07/20/17 17:59 999 MLS/HR Cefepime HCl 2000 mg/Dextrose 122 ml @ 200 mls/hr NOW STAT IV 07/20/17 16:51 07/20/17 17:27 DC 07/20/17 18:00 200 MLS/HR Departure Information Impression Primary Impression: Sepsis Additional Impression: Fever Dispostion Admitted as an inpatient Condition FAIR Referrals Galdino Francisco M.D. (PCP) Patient Instructions [facility] Problem Qualifiers Primary Impression: Sepsis Sepsis type: sepsis due to unspecified organism Qualified Codes: A41.9 - Sepsis, unspecified organism Additional Impression: Fever Fever type: due to other condition Qualified Codes: R50.81 - Fever presenting with conditions classified elsewhere
[2017-07-20] MEDS ORDERED: CARV25TA PO (17:16)
[2017-07-20] MEDS ORDERED: FURO-85 PO (17:16)
[2017-07-20] MEDS ORDERED: WARF5TAB90 PO ×2 (17:16)
[2017-07-20 18:11] LABS: BASO % 0.1 %; BASO ABS # 0.01 K/uL (0-0.2); HEMATOCRIT 44.9 % (42-52); HEMOGLOBIN 15.1 g/dL (14.0-18.0); IG# 0.03 K/uL (0.00-0.02); LYMPH % 4.3 %; MEAN CELL VOLUME 84.9 fL (80-100); MEAN CORPUSCULAR HEMOGLOBIN 28.5 pg (25-34); MEAN CORPUSCULAR HGB CONC 33.6 g/dl (32-36); MEAN PLATELET VOLUME 11.5 fL (7.4-10.4); MONO % 5.3 %; MONO ABS # 0.74 K/uL (0.11-0.59); NEUT % 90.1 %; PLATELET COUNT 156 K/uL (130-400); RED CELL DISTRIBUTION WIDTH CV 14.9 % (11.5-14.5); RED CELL DISTRIBUTION WIDTH SD 46.1 fL (36.4-46.3); WHITE BLOOD COUNT 13.88 K/uL (4.8-10.8)
[2017-07-20 18:34] LABS: ALBUMIN 4.1 gm/dl (3.4-5.0); ALT/SGPT 52 U/L (12-78); AST/SGOT 30 U/L (15-37); BLOOD UREA NITROGEN 14 mg/dl (7-18); CARBON DIOXIDE 29 mmol/L (21-32); CREATININE 1.27 mg/dl (0.60-1.40); GLUCOSE 106 mg/dl (70-99); LIPASE 104 U/L (73-393); POTASSIUM 3.6 mmol/L (3.5-5.1); SODIUM 133 mmol/L (136-145)
[2017-07-20 18:35] LABS: INR 1.9 (0.9-1.1); PTT PATIENT 35.9 SECONDS (21.0-31.0)
[2017-07-20 18:37] LABS: ALKALINE PHOSPHATASE 67 U/L (45-117); TOTAL PROTEIN 7.6 gm/dl (6.4-8.2)
[2017-07-20] MEDS ORDERED: GLUCOSE 40% GEL 15 GM TUBE PO PRN (19:45)
[2017-07-20] MEDS ORDERED: POLYETHYLENE (MIRALAX) 17 GM PACK PO PRN (19:45)
[2017-07-20] MEDS ORDERED: DEXTROSE 50% 50 ML SYR IV PRN (19:45)
[2017-07-20] MEDS ORDERED: GLUCAGON FOR INJ 1 MG VIAL SQ PRN (19:45)
[2017-07-20] MEDS ORDERED: ONDANSETRON INJ 2 MG/ML 2 ML VIAL IV PRN (19:45)
[2017-07-20] MEDS ORDERED: GLUCOSE 10 TABS/TUBE PO PRN (19:45)
[2017-07-20 20:14] VITALS: O2SAT 98
[2017-07-20] MEDS ORDERED: OMEG-112 PO (20:15)
[2017-07-20] MEDS ORDERED: AMIODARONE 200 MG TAB PO ONE (20:15)
[2017-07-20] MEDS ORDERED: AMIO200T4 PO (20:15)
[2017-07-20] MEDS ORDERED: LISINOPRIL 40 MG TAB PO ONE (20:15)
[2017-07-20 20:30] VITALS: BP 108/66; PULSE 88; PULSE 91; TEMP 39.3; O2SAT 95; Ht 185.4 cm; Wt 122.3 kg
--- NOTE | 2017-07-20 20:42 | History and Physical ---
History & Physical Date & Time of Service: Jul 20, 2017 ~ 19:45 Chief Complaint: Fever Primary Care Physician: Galdino Francisco M.D. History of Present Illness 61-year-old male who presents the ED with fever. Patient reports he woke up at 4:00 in the morning and had chills and rigors. Patient did not take his temperature at home. Patient presented to his PCPs office today where he is found to be febrile at 103.1. He was given Tylenol and on recheck temperature was 103.9. He had outpatient labs, urine test, influenza testing that was all unremarkable. He was referred to the ER for further evaluation. Patient denies any other associated symptoms. No cough, shortness of breath, or sputum production. No sinus symptoms. He denies abdominal pain, nausea, vomiting, or diarrhea. No urinary symptoms or flank pain. No new rashes or lesions. He denies joint pain. No recent travel or sick contacts. 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 He denies chest pain, lightheadedness, dizziness, diaphoresis, and syncopal events. In the ED, patient was found to have WBC 13.8 K, fever of 38.7, mild tachycardia in the 90s, and elevated lactic acid 2.4. Patient was given IVF and cefepime. Past Medical/Surgical History Medical Problems: (1) Atrial fibrillation Status: Chronic (2) DM type 2 (diabetes mellitus, type 2) Status: Chronic (3) Dyslipidemia Status: Chronic (4) Gout Status: Chronic (5) HTN (hypertension) Status: Chronic Surgical Problems: (1) H/O aortic valve replacement Permanent Comment: #27 Freestyle porcine prosthesis with Bentall procedure and # 28 Sy shield graft repair of the aortic root by Dr. Velasco at [facility] in [place], [place] - 12/27/09 Status: Chronic (2) History of tonsillectomy Status: Chronic (3) History of vasectomy Status: Chronic (4) Hx of tonsillectomy Status: Resolved (5) Hx of vasectomy Status: Resolved Family History FH: CAD (coronary artery disease) MOTHER ( while having CABG at age 73) Social History Smoking Status: Never Smoker Alcohol Use: none Immunizations History of Tetanus Vaccine?: Yes Tetanus Immunization Date: Feb 17, 2008 History of Pneumococcal: Yes Pneumococcal Date: Nov 17, 2014 Allergies Coded Allergies: No Known Allergies (Unverified , 07/20/17) Home Medications Scheduled Allopurinol (Zyloprim), 100 MG PO DAILY Amiodarone Hcl (Cordarone), 1 TAB PO DAILY Aspirin (Aspirin 81), 1 TAB PO DAILY Carvedilol (Coreg), 37.5 MG PO BID Cholecalciferol (Vitamin D 1000 Unit), 2 CAP PO DAILY Furosemide (Lasix), 40 MG PO DAILY Gabapentin (Neurontin), 300 MG PO HS Lisinopril (Zestril), 40 MG PO DAILY Metformin Hcl (Glucophage), 1,000 MG PO BID Multivitamin (Multivitamin), 1 TAB PO DAILY Nnicz-0-Baom Ethyl Esters (Ceylon-3), 2 CAP PO BID Warfarin Sodium (Coumadin), 5 MG PO SuTuTh Warfarin Sodium (Coumadin), 2.5 MG PO MoWeFrSa Review of Systems ROS per HPI, all other systems reviewed and negative Physical Exam Vital Signs Date Time Temp Pulse Resp B/P (MAP) Pulse Ox O2 Delivery O2 Flow Rate FiO2 07/20/17 20:14 89 16 160/85 98 Room Air 07/20/17 19:01 92 27 152/61 94 07/20/17 18:46 97 22 95 07/20/17 18:31 100 28 163/68 93 07/20/17 18:26 38.7 95 24 154/76 95 Room Air 07/20/17 18:16 94 36 95 07/20/17 18:01 93 30 154/76 97 07/20/17 17:59 93 07/20/17 17:57 162/83 07/20/17 17:56 94 15 162/83 96 Room Air 07/20/17 15:38 37.2 91 20 149/76 95 Room Air General Appearance: WD/WN, + mild distress Head: normocephalic, atraumatic Eyes: normal inspection, EOMI, sclerae normal ENT: hearing grossly normal, pharynx normal, + pertinent finding (Mucous membranes moist) Neck: supple, no JVD, trachea midline Respiratory/Chest: lungs clear, normal breath sounds, no respiratory distress Cardiovascular: regular rate, rhythm (Heart rate in the 90s), no edema, normal peripheral pulses Abdomen/GI: normal bowel sounds, non tender, soft, no organomegaly Extremities/Musculoskelatal: normal inspection, no calf tenderness, normal capillary refill Neurologic/Psych: no motor/sensory deficits, alert, normal mood/affect, oriented x 3 Skin: normal color, warm/dry, no rash Diagnostics Laboratory Results Results Past 24 Hours Test 07/20/17 17:40 07/20/17 20:20 Range/Units White Blood Count 13.88 4.8-10.8 K/uL Red Blood Count 5.29 4.7-6.1 M/uL Hemoglobin 15.1 14.0-18.0 g/dL Hematocrit 44.9 42-52 % Mean Corpuscular Volume 84.9 80-100 fL Mean Corpuscular Hemoglobin 28.5 25-34 pg Mean Corpuscular Hemoglobin Concent 33.6 32-36 g/dl Platelet Count 156 130-400 K/uL Mean Platelet Volume 11.5 7.4-10.4 fL Neutrophils (%) (Auto) 90.1 % Lymphocytes (%) (Auto) 4.3 % Monocytes (%) (Auto) 5.3 % Eosinophils (%) (Auto) 0.0 % Basophils (%) (Auto) 0.1 % Neutrophils # (Auto) 12.50 1.4-6.5 K/uL Lymphocytes # (Auto) 0.60 1.2-3.4 K/uL Monocytes # (Auto) 0.74 0.11-0.59 K/uL Eosinophils # (Auto) 0.00 0-0.5 K/uL Basophils # (Auto) 0.01 0-0.2 K/uL RDW Standard Deviation 46.1 36.4-46.3 fL RDW Coefficient of Variation 14.9 11.5-14.5 % Immature Granulocyte % (Auto) 0.2 % Immature Granulocyte # (Auto) 0.03 0.00-0.02 K/uL Prothrombin Time 19.5 9.0-12.0 SECONDS Prothromb Time International Ratio 1.9 0.9-1.1 Activated Partial Thromboplast Time 35.9 21.0-31.0 SECONDS Partial Thromboplastin Ratio 1.4 Sodium Level 133 136-145 mmol/L Potassium Level 3.6 3.5-5.1 mmol/L Chloride Level 97 98-107 mmol/L Carbon Dioxide Level 29 21-32 mmol/L Anion Gap 8.0 3-11 mmol/L Blood Urea Nitrogen 14 7-18 mg/dl Creatinine 1.27 0.60-1.40 mg/dl Est Creatinine Clear Calc Drug Dose 91.1 ml/min Estimated GFR () 71.2 Estimated GFR (Non- 61.4 BUN/Creatinine Ratio 11.3 10-20 Random Glucose 106 70-99 mg/dl Lactic Acid Level 2.4 0.4-2.0 mmol/L Calcium Level 9.0 8.5-10.1 mg/dl Total Bilirubin 1.0 0.2-1 mg/dl Direct Bilirubin 0.2 0-0.2 mg/dl Aspartate Amino Transf (AST/SGOT) 30 15-37 U/L Alanine Aminotransferase (ALT/SGPT) 52 12-78 U/L Alkaline Phosphatase 67 45-117 U/L Troponin I < 0.015 0-0.045 ng/ml Total Protein 7.6 6.4-8.2 gm/dl Albumin 4.1 3.4-5.0 gm/dl Lipase 104 73-393 U/L Lyme Disease IgG Antibody NEG NEG Lyme Disease IgM Antibody NEG NEG Microbiology Results 07/20/17 Blood Culture, Received Pending 07/20/17 Blood Culture, Received Pending 07/20/17 Urine Culture, Received Pending Impression Assessment and Plan SEPSIS -Admit to telemetry -Patient presenting with sudden onset of high fevers early this morning -On presentation, temp 38.7, heart rate in the 90s, W BC 13.8 K, lactic acid 2.4 ; BP stable -No clear identifiable source at this time, noted no travel history or other sick contacts; consider viral etiology -Noted history of aortic valve replacement, need to consider endocarditis -Check TSH, Monospot -Blood cultures -Trend lactic acid -Empiric IV vancomycin and cefepime until cultures result -Continue IVF -Other etiologies to be considered if patient does not improve with above treatments ATRIAL FIBRILLATION -Rhythm controlled on amiodarone, rate controlled on carvedilol -Anticoagulated on Coumadin, INR 1.9 -Continue Coumadin as per home dosing schedule S/P BIOPROSTHETIC AORTIC VALVE REPLACEMENT HYPERTENSION -BP is mildly elevated, however did not take home medications today -Continue lisinopril and carvedilol, make adjustments as needed DIABETES -Hold oral agents and utilize Lantus and NovoLog while hospitalized GOUT -Continue allopurinol DVT PROPHYLAXIS -Anticoagulated on Coumadin, INR 1.9 DISPOSITION -In my clinical judgment this beneficiary meets acute admission criteria, established by [facility], that includes being hospitalized through two midnights. ADDENDUM: I have seen and examined the patient and agree with the assessment and plan as above. Fever began abruptly this morning. No infectious symptoms are present, no source identified. Multiple etiologies listed above and not an exhaustive list. Cont workup while cultures pending. Monitor response to abx and for clinical improvement. Of note, he denies travel history, sick contacts , recent outpatient procedures, and no recent dental work. Evans, DO Resuscitation Status VTE Prophylaxis Will order VTE Prophylaxis: Yes
[2017-07-20] MEDS: GABAPENTIN 300 MG CAP PO SCH (21:00)
[2017-07-20] MEDS: INSULIN ASPART 100 UNITS/ML 3 ML PEN SC SCH (21:00)
[2017-07-20] MEDS: ACETAMINOPHEN 325 MG TAB PO PRN (21:09)
[2017-07-20 21:30] VITALS: PULSE 88; O2SAT 95
[2017-07-20] MEDS: SODIUM CHLORIDE 0.9% 1000ML 1,000 ML IV SCH (21:46)
[2017-07-20] MEDS: WARFARIN SOD 2.5 MG TAB PO SCH (21:49)
[2017-07-20] MEDS: CARVEDILOL 25 MG TAB PO SCH (21:52)
[2017-07-20] MEDS: OMEGA-3 (PURIFIED FISH OIL) 1 GM CAP PO SCH (21:52)
[2017-07-20] MEDS: INSULIN GLARGINE SOLOSTAR 100 UNITS/ML 3 ML PEN SC SCH (21:59)
[2017-07-20 22:23] VITALS: BP 108/69; PULSE 87; O2SAT 95
[2017-07-20 22:30] VITALS: PULSE 83; O2SAT 95
[2017-07-20] MEDS ORDERED: LORAZEPAM 0.5 MG TAB PO STA (22:56)
[2017-07-20] MEDS ORDERED: SODIUM CHLORIDE 0.9% 500ML 500 ML IV SCH (23:00)
[2017-07-20 23:30] VITALS: PULSE 77
[2017-07-21] VITALS (13 sets, daily range): BP systolic 108–139; BP diastolic 53–62; PULSE 58–85; TEMP 36.8–38.6; O2SAT 91–96
[2017-07-21 03:58] LABS: BASO % 0.1 %; BASO ABS # 0.01 K/uL (0-0.2); HEMATOCRIT 38.3 % (42-52); HEMOGLOBIN 12.9 g/dL (14.0-18.0); IG# 0.03 K/uL (0.00-0.02); LYMPH % 4.8 %; LYMPH ABS # 0.51 K/uL (1.2-3.4); MEAN CELL VOLUME 84.2 fL (80-100); MEAN CORPUSCULAR HEMOGLOBIN 28.4 pg (25-34); MEAN CORPUSCULAR HGB CONC 33.7 g/dl (32-36); MEAN PLATELET VOLUME 10.4 fL (7.4-10.4); MONO % 6.1 %; MONO ABS # 0.64 K/uL (0.11-0.59); NEUT % 88.7 %; NEUT ABS # 9.33 K/uL (1.4-6.5); PLATELET COUNT 124 K/uL (130-400); RED CELL DISTRIBUTION WIDTH CV 15.1 % (11.5-14.5); RED CELL DISTRIBUTION WIDTH SD 46.6 fL (36.4-46.3); WHITE BLOOD COUNT 10.52 K/uL (4.8-10.8)
[2017-07-21 04:06] LABS: INR 1.7 (0.9-1.1)
[2017-07-21 04:15] LABS: CALCIUM 7.9 mg/dl (8.5-10.1); CREATININE 1.18 mg/dl (0.60-1.40); POTASSIUM 3.4 mmol/L (3.5-5.1)
[2017-07-21] MEDS: ACETAMINOPHEN 325 MG TAB PO PRN ×3 (05:23→23:04)
[2017-07-21] MEDS ORDERED: VANCOMYCIN IV 0 MG in SODIUM CHLORIDE 0.9% 250ML 250 ML IV STA (06:14)
[2017-07-21] MEDS ORDERED: VANCOMYCIN CONSULT ACTIVE PRN (06:15)
[2017-07-21] MEDS ORDERED: VANCOMYCIN IV 2,500 MG in SODIUM CHLORIDE 0.9% 500ML 500 ML IV SCH (06:30)
[2017-07-21 07:19] LABS: HEMOGLOBIN A1C 5.8 % (4.5-5.6)
[2017-07-21] MEDS: ASPIRIN 81 MG ECTAB PO SCH (07:47)
[2017-07-21] MEDS: MULTIVITAMIN TAB PO SCH (07:47)
[2017-07-21] MEDS: OMEGA-3 (PURIFIED FISH OIL) 1 GM CAP PO SCH ×2 (07:47→20:43)
[2017-07-21] MEDS: LISINOPRIL 40 MG TAB PO SCH (07:47)
[2017-07-21] MEDS: ALLOPURINOL 100 MG TAB PO SCH (07:47)
[2017-07-21] MEDS: CHOLECALCIFEROL 1000 INTER.UNIT TAB PO SCH (07:48)
[2017-07-21] MEDS: AMIODARONE 200 MG TAB PO SCH (07:48)
[2017-07-21] MEDS: CARVEDILOL 25 MG TAB PO SCH ×2 (07:49→20:43)
[2017-07-21] MEDS: SODIUM CHLORIDE 0.9% 1000ML 1,000 ML IV SCH (08:03)
[2017-07-21] MEDS: INSULIN ASPART 100 UNITS/ML 3 ML PEN SC SCH ×4 (08:06→20:42)
[2017-07-21] MEDS ORDERED: PERFLUTREN LIPID MICROSPHERE (DEFINITY) IV ONE (08:18)
[2017-07-21] MEDS ORDERED: ENOXAPARIN 40 MG/0.4 ML SYR SC SCH (09:00)
--- NOTE | 2017-07-21 09:10 | ECHOCARDIOGRAM REPORT ---
*NOTICE TO RECEIVING LIBERTARIAN AGENCY This information is strictly Confidential and protected under [place] law. [place] law prohibits you from making any further disclosure of this information unless further disclosure is expressly permitted by the written consent of the person to whom it pertains or is authorized by law. A general authorization for the release of medical or other information is not sufficient for this purpose. Hospital accepts no responsibility if the information is made available to any other person, INCLUDING THE PATIENT. Interpretation Summary * Name: ELIJAH VELA Study Date: 07/21/2017 07:56 AM BP: 139/53 mmHg * Patient Location: .MSICU\S\E111\S\1 HR: 82 * : 1955 (M/d/yyyy) Gender: Male Height: 73 in * Age: 61 yrs Ethnicity: CA Weight: 262 lb * Ordering Physician: Glenys Jeffries * Referring Physician: Self, Referred * Performed By: Haritha Aparicio RDCS * * Reason For Study: Endocarditis * BSA: 2.4 m2 * The study was technically limited. * -- Conclusions -- * Ejection Fraction = 60-65%. * There is mild concentric left ventricular hypertrophy. * There is a bioprosthetic aortic valve. * The gradient is normal for this prosthetic aortic valve. * No significant prosthetic valve regurgitation. * Technically limited views of the mitral valve demonstrate moderate mitral annular calcification. * Underlying vegetation cannot be excluded. Procedure Details * A complete two-dimensional transthoracic echocardiogram was performed (2D, M-mode, Doppler and color flow Doppler). * A contrast injection of Definity was performed to improve assessment of LV function. * Contrast was injected into an intravenous site in the left arm. * One vial of Definity ultrasound contrast was diluted in normal saline to a total volume of 10 ml. A total of '1' ml of solution was administered during imaging. * Lot # [id number] of Definity utilized for procedure. * Expiration date JUL 19. * The attending nurse who injected the contrast agent was Yvonne Logan RN. Left Ventricle * The left ventricle is normal in size. * There is no thrombus. * There is mild concentric left ventricular hypertrophy. * Ejection Fraction = 60-65%. * Left ventricular systolic function is normal. * The left ventricular wall motion is normal. Right Ventricle * The right ventricle is normal size. * The right ventricular systolic function is normal as assessed by tricuspid annular plane systolic excursion (TAPSE) (normal >1.5 cm). Atria * The left atrial size is normal. * Right atrial size is normal. * There is no evidence of atrial septal defect, but resolution does not allow assessment for a patent foramen ovale. Mitral Valve * Technically limited views of the mitral valve demonstrate moderate mitral annular calcification. Underlying vegetation cannot be excluded. * There is no mitral valve stenosis. * Significant mitral regurgitation is absent. Tricuspid Valve * The tricuspid valve is normal. * There is no tricuspid stenosis. * Significant tricuspid regurgitation is absent. Aortic Valve * There is a bioprosthetic aortic valve. * The gradient is normal for this prosthetic aortic valve. * No significant prosthetic valve regurgitation. Pulmonic Valve * The pulmonary valve is not well seen, but the Doppler examination is normal without significant regurgitation or stenosis. Great Vessels * The aortic root is normal size. Pericardium/Pleural * There is no pericardial effusion. Great Vessels * Normal inferior vena cava diameter and respiratory variation suggests normal central venous pressure. Left Ventricular Diastolic Function * Diastolic dysfunction, Grade II (pseudonormalization pattern). MMode 2D Measurements and Calculations IVSd 1.3 cm LVIDd 3.9 cm LVIDs 2.6 cm LVPWd 1.2 cm IVS/LVPW 1.0 FS 33.4 % EDV(Teich) 64.6 ml ESV(Teich) 24.0 ml EF(Teich) 62.8 % EDV(cubed) 57.9 ml ESV(cubed) 17.1 ml EF(cubed) 70.5 % LV mass(C)d 171.4 grams LV mass(C)dI 71.0 grams/m\S\2 SV(Teich) 40.6 ml SI(Teich) 16.8 ml/m\S\2 SV(cubed) 40.8 ml SI(cubed) 16.9 ml/m\S\2 Ao root diam 3.1 cm Ao root area 7.7 cm\S\2 LA dimension 3.6 cm asc Aorta Diam 2.7 cm LA/Ao 1.2 LVOT diam 2.0 cm LVOT area 3.2 cm\S\2 LVAd ap4 41.4 cm\S\2 LVLd ap4 8.8 cm EDV(MOD-sp4) 155.2 ml EDV(sp4-el) 164.5 ml LVAs ap4 22.7 cm\S\2 LVLs ap4 7.9 cm ESV(MOD-sp4) 53.5 ml ESV(sp4-el) 55.6 ml EF(MOD-sp4) 65.5 % EF(sp4-el) 66.2 % LVAd ap2 35.5 cm\S\2 LVLd ap2 8.3 cm EDV(MOD-sp2) 124.5 ml EDV(sp2-el) 128.4 ml LVAs ap2 18.7 cm\S\2 LVLs ap2 6.8 cm ESV(MOD-sp2) 41.4 ml ESV(sp2-el) 43.9 ml EF(MOD-sp2) 66.8 % EF(sp2-el) 65.8 % LVLd %diff -6.01 % EDV(MOD-bp) 137.4 ml LVLs %diff -15.60 % ESV(MOD-bp) 49.2 ml EF(MOD-bp) 64.2 % SV(MOD-sp4) 101.7 ml SI(MOD-sp4) 42.1 ml/m\S\2 SV(MOD-sp2) 83.2 ml SI(MOD-sp2) 34.5 ml/m\S\2 SV(MOD-bp) 88.3 ml SI(MOD-bp) 36.6 ml/m\S\2 SV(sp4-el) 108.9 ml SI(sp4-el) 45.1 ml/m\S\2 SV(sp2-el) 84.5 ml SI(sp2-el) 35.0 ml/m\S\2 Doppler Measurements and Calculations MV E max jose 144.0 cm/sec MV A max jose 74.0 cm/sec MV E/A 1.9 MV dec time 0.23 sec Ao V2 max 155.4 cm/sec Ao max PG 9.7 mmHg Ao max PG (full) 2.1 mmHg CHAVO(V,A) 2.8 cm\S\2 CHAVO(V,D) 2.8 cm\S\2 LV V1 max PG 7.6 mmHg LV V1 max 137.4 cm/sec PA V2 max 112.2 cm/sec PA max PG 5.0 mmHg PA acc slope 475.9 cm/sec\S\2 PA acc time 0.16 sec PA pr(Accel) 6.1 mmHg
--- NOTE | 2017-07-21 12:47 | Pharmacy Progress Note ---
Pharmacy Abx Initial Consult Date of Service Jul 21, 2017. Pharmacy Dosing Scope Date of Consult: 07/21/17 Consultation requested by: Dr. King Pharmacy is consulted to initiate Vancomcyin IV dosing therapy, order appropriate labs and adjust drug dose/frequency for Bacteremia. Subjective The patient is a 61 year old male admitted on Jul 20, 2017 at 19:40. Objective Height (Feet): 6 Height (Inches): 1.00 Weight (Kilograms): 118.900 Vital Signs (Past 12Hrs) Vital Signs Past 12 Hours Date Time Temp Pulse Resp B/P (MAP) Pulse Ox O2 Delivery O2 Flow Rate FiO2 07/21/17 10:38 37.7 07/21/17 08:25 Room Air 07/21/17 08:00 Room Air 07/21/17 07:54 36.8 71 30 113/61 (78) 96 Room Air 07/21/17 04:01 Room Air 07/21/17 04:01 82 26 139/53 (81) 07/21/17 04:00 84 26 07/21/17 03:00 85 34 07/21/17 02:00 85 36 07/21/17 01:00 82 30 07/21/17 00:39 Room Air Lab Results (24Hrs) Laboratory Tests (24 Hours) Test 07/20/17 17:40 07/21/17 03:47 Procalcitonin 0.84 ng/ml (0-0.5) H Lactic Acid Level 1.3 mmol/L (0.4-2.0) White Blood Count 10.52 K/uL (4.8-10.8) Red Blood Count 4.55 M/uL (4.7-6.1) L Hemoglobin 12.9 g/dL (14.0-18.0) L Hematocrit 38.3 % (42-52) L Mean Corpuscular Volume 84.2 fL (80-100) Mean Corpuscular Hemoglobin 28.4 pg (25-34) Mean Corpuscular Hemoglobin Concent 33.7 g/dl (32-36) Platelet Count 124 K/uL (130-400) L Mean Platelet Volume 10.4 fL (7.4-10.4) Neutrophils (%) (Auto) 88.7 % Lymphocytes (%) (Auto) 4.8 % Monocytes (%) (Auto) 6.1 % Eosinophils (%) (Auto) 0.0 % Basophils (%) (Auto) 0.1 % Neutrophils # (Auto) 9.33 K/uL (1.4-6.5) H Lymphocytes # (Auto) 0.51 K/uL (1.2-3.4) L Monocytes # (Auto) 0.64 K/uL (0.11-0.59) H Eosinophils # (Auto) 0.00 K/uL (0-0.5) Basophils # (Auto) 0.01 K/uL (0-0.2) Micro Results Date/Time Source Procedure Growth Status 07/20/17 17:59 Blood Blood Culture - Preliminary Gram Positive Cocci Resulted 07/20/17 17:40 Blood Blood Culture - Preliminary Gram Positive Cocci Resulted 07/20/17 01:35 Urine , Clean Catch Urine Culture Pending Received Assessment & Plan Assessment 61 year old male admitted with Sepsis. Plan Vancomycin for treatment of Bacteremia (blood cultures positive for Gram positive cocci). Vancomycin IV * Loading dose: Vancomycin 2500 mg (21mg/kg) x 1 given today at 0630 * Estimated PK parameters: Ke = 0.079/hr, Vd= 0.7 L/kg, t1/2 = 8.8 hrs * Maintenance dose: 1750 mg IV (14.7 mg/kg) every 12 hours started today at 1600. * Goal trough level for Bacteremia: 15 to 20 mcg/mL * Trough Vancomycin level ordered for 07/23/17 before dose at 0400. * Vancomycin dosed conservatively due to likelihood of drug accumulation in almost obese patient (BMI 34.6 kg/m2). Pharmacy will continue to follow and will adjust dose/frequency as necessary. Thank you.
[2017-07-21] MEDS ORDERED: POTASSIUM CHLORIDE 10 MEQ TABCR PO STA (15:42)
[2017-07-21] MEDS: VANCOMYCIN IV 1,750 MG in SODIUM CHLORIDE 0.9% 500ML 500 ML IV SCH (17:05)
--- NOTE | 2017-07-21 20:27 | Progress Note ---
Internal Med Progress Note Date of Service: Jul 21, 2017. Provider Documentation: SUBJECTIVE: Offers no complaint, No fever chills Vitals remain stable OBJECTIVE: Vital Signs-as noted below Exam: General-no sign of distress Eyes-sclera nonicteric ENT-moist oral mucous Neck-no JVD Lungs-clear to auscultate Heart-regular S1-S2 Abdomen-soft nontender Extremities-no lower extremity Neuro-alert awake oriented 3/no focal neurological deficit Lab data as noted below. ASSESSMENT & PLAN: SEPSIS/WITH GRAM-POSITIVE BACTEREMIA -Patient presented with sudden onset of high fevers early in a.m. morning Criteria for sepsis -On presentation, temp 38.7, heart rate in the 90s, W BC 13.8 K, lactic acid 2.4 ; BP stable -Blood culture positive for gram-positive cocci High risk for endocarditis as patient has bioprosthetic aortic valve Repeat blood culture ordered On empiric antibiotic with vancomycin and cefepime ID eval requested - ATRIAL FIBRILLATION -Rhythm controlled on amiodarone, rate controlled on carvedilol -Anticoagulated on Coumadin, INR 1.9 -Continue Coumadin as per home dosing schedule S/P BIOPROSTHETIC AORTIC VALVE REPLACEMENT Echocardiogram : Ejection Fraction = 60-65%. * There is mild concentric left ventricular hypertrophy. * There is a bioprosthetic aortic valve. * The gradient is normal for this prosthetic aortic valve. * No significant prosthetic valve regurgitation. * Technically limited views of the mitral valve demonstrate moderate mitral annular calcification. * Underlying vegetation cannot be excluded. Given positive blood culture/aortic valve replacement Patient will need JEEVAN eval Will discuss with cardiology HYPERTENSION -Stable -Continue lisinopril and carvedilol, DIABETES -Hold oral agents and utilize Lantus and NovoLog while hospitalized GOUT -Continue allopurinol DVT PROPHYLAXIS -Anticoagulated on Coumadin, INR 1.9 CODE STATUS full code DISPOSITION Expect expected to be discharged home when medically stable Vital Signs: Date Time Temp Pulse Resp B/P (MAP) Pulse Ox O2 Delivery O2 Flow Rate FiO2 07/21/17 19:22 36.8 58 20 108/62 (77) 91 Room Air 07/21/17 16:05 Room Air 07/21/17 14:00 37.7 07/21/17 12:30 38.6 75 26 115/58 (77) 93 Room Air 4/21/18 12:00 Room Air 07/21/17 10:38 37.7 07/21/17 08:25 Room Air 07/21/17 08:00 Room Air 07/21/17 07:54 36.8 71 30 113/61 (78) 96 Room Air 07/21/17 04:01 Room Air 07/21/17 04:01 82 26 139/53 (81) 07/21/17 04:00 84 26 07/21/17 03:00 85 34 07/21/17 02:00 85 36 07/21/17 01:00 82 30 07/21/17 00:39 Room Air 07/21/17 00:30 82 26 07/21/17 00:01 37.3 77 25 122/57 (78) 95 Room Air 07/20/17 23:30 77 24 07/20/17 22:30 83 25 07/20/17 22:30 83 25 95 07/20/17 22:23 87 21 108/69 (82) 07/20/17 22:23 87 21 108/69 (82) 95 07/20/17 21:30 88 28 95 07/20/17 21:30 88 21 Lab Results: Results Past 24 Hours Test 07/20/17 21:56 07/21/17 03:47 07/21/17 06:06 07/21/17 11:29 Range/Units Bedside Glucose 125 125 116 70-99 mg/dl White Blood Count 10.52 4.8-10.8 K/uL Red Blood Count 4.55 4.7-6.1 M/uL Hemoglobin 12.9 14.0-18.0 g/dL Hematocrit 38.3 42-52 % Mean Corpuscular Volume 84.2 80-100 fL Mean Corpuscular Hemoglobin 28.4 25-34 pg Mean Corpuscular Hemoglobin Concent 33.7 32-36 g/dl Platelet Count 124 130-400 K/uL Mean Platelet Volume 10.4 7.4-10.4 fL Neutrophils (%) (Auto) 88.7 % Lymphocytes (%) (Auto) 4.8 % Monocytes (%) (Auto) 6.1 % Eosinophils (%) (Auto) 0.0 % Basophils (%) (Auto) 0.1 % Neutrophils # (Auto) 9.33 1.4-6.5 K/uL Lymphocytes # (Auto) 0.51 1.2-3.4 K/uL Monocytes # (Auto) 0.64 0.11-0.59 K/uL Eosinophils # (Auto) 0.00 0-0.5 K/uL Basophils # (Auto) 0.01 0-0.2 K/uL RDW Standard Deviation 46.6 36.4-46.3 fL RDW Coefficient of Variation 15.1 11.5-14.5 % Immature Granulocyte % (Auto) 0.3 % Immature Granulocyte # (Auto) 0.03 0.00-0.02 K/uL Prothrombin Time 17.6 9.0-12.0 SECONDS Prothromb Time International Ratio 1.7 0.9-1.1 Sodium Level 134 136-145 mmol/L Potassium Level 3.4 3.5-5.1 mmol/L Chloride Level 101 98-107 mmol/L Carbon Dioxide Level 28 21-32 mmol/L Anion Gap 5.0 3-11 mmol/L Blood Urea Nitrogen 15 7-18 mg/dl Creatinine 1.18 0.60-1.40 mg/dl Est Creatinine Clear Calc Drug Dose 91.0 ml/min Estimated GFR () 77.8 Estimated GFR (Non- 67.1 BUN/Creatinine Ratio 12.3 10-20 Random Glucose 121 70-99 mg/dl Estimated Average Glucose 120 mg/dl Hemoglobin A1c 5.8 4.5-5.6 % Lactic Acid Level 1.3 0.4-2.0 mmol/L Calcium Level 7.9 8.5-10.1 mg/dl Test 07/21/17 16:26 07/21/17 20:00 Range/Units Bedside Glucose 108 70-99 mg/dl Urine Color YELLOW Urine Appearance CLEAR CLEAR Urine pH 6.0 4.5-7.5 Urine Specific [place] 1.010 1.000-1.030 Urine Protein NEG NEG Urine Glucose (UA) NEG NEG Urine Ketones NEG NEG Urine Occult Blood 1+ NEG Urine Nitrite NEG NEG Urine Bilirubin NEG NEG Urine Urobilinogen NEG NEG Urine Leukocyte Esterase NEG NEG Urine WBC (Auto) 0-5 /hpf Urine RBC (Auto) 0-4 /hpf Urine Hyaline Casts (Auto) 0-5 /lpf Urine Epithelial Cells (Auto) 0-5 /lpf Urine Bacteria (Auto) NEG Urine RBC 5-10 0-4 /hpf Urine WBC 0 0-5 /hpf Urine Epithelial Cells 0-5 0-5 /lpf Urine Bacteria NEG NEG Microbiology Results 07/21/17 C.difficile Toxin B Gene (PCR), Received Pending
[2017-07-21] MEDS: GABAPENTIN 300 MG CAP PO SCH (20:42)
[2017-07-21] MEDS: WARFARIN SOD 2.5 MG TAB PO SCH (20:43)
[2017-07-21] MEDS: INSULIN GLARGINE SOLOSTAR 100 UNITS/ML 3 ML PEN SC SCH (20:45)
[2017-07-22] VITALS (7 sets, daily range): BP systolic 103–177; BP diastolic 50–91; PULSE 64–73; TEMP 36.7–38.8; O2SAT 90–95
[2017-07-22] MEDS ORDERED: NSS + 20MEQ KCL 1000ML 1,000 ML IV ONE (00:30)
[2017-07-22 00:46] LABS: BASO % 0.1 %; BASO ABS # 0.01 K/uL (0-0.2); HEMATOCRIT 35.1 % (42-52); HEMOGLOBIN 12.2 g/dL (14.0-18.0); IG# 0.02 K/uL (0.00-0.02); LYMPH ABS # 0.65 K/uL (1.2-3.4); MEAN CELL VOLUME 84.4 fL (80-100); MEAN CORPUSCULAR HEMOGLOBIN 29.3 pg (25-34); MEAN CORPUSCULAR HGB CONC 34.8 g/dl (32-36); MEAN PLATELET VOLUME 10.3 fL (7.4-10.4); MONO % 6.6 %; MONO ABS # 0.61 K/uL (0.11-0.59); NEUT % 86.1 %; NEUT ABS # 7.98 K/uL (1.4-6.5); PLATELET COUNT 107 K/uL (130-400); RED CELL DISTRIBUTION WIDTH CV 15.1 % (11.5-14.5); RED CELL DISTRIBUTION WIDTH SD 46.7 fL (36.4-46.3); WHITE BLOOD COUNT 9.27 K/uL (4.8-10.8)
[2017-07-22 01:03] LABS: CALCIUM 8.2 mg/dl (8.5-10.1); CREATININE 1.03 mg/dl (0.60-1.40); POTASSIUM 3.4 mmol/L (3.5-5.1)
[2017-07-22] MEDS ORDERED: POTASSIUM CHLORIDE 10 MEQ TABCR PO STA (01:19)
[2017-07-22] MEDS: VANCOMYCIN IV 1,750 MG in SODIUM CHLORIDE 0.9% 500ML 500 ML IV SCH ×2 (03:32→16:04)
--- NOTE | 2017-07-22 07:12 | DIAGNOSTIC IMAGING REPORT ---
CHEST ONE VIEW PORTABLE CLINICAL HISTORY: SOB dyspnea. Sepsis. COMPARISON STUDY: 03/13/2017 FINDINGS: Moderate stable cardiomegaly. Prior median sternotomy. Lungs are considered clear. Diaphragms are smooth. IMPRESSION: Moderate cardiomegaly. Otherwise negative study. The above report was generated using voice recognition software. It may contain grammatical, syntax or spelling errors. Electronically signed by: Galdino José M.D. 07/22/2017 7:11 AM Dictated Date/Time: 07/22/2017 7:11 AM
--- NOTE | 2017-07-22 07:27 | Progress Note ---
Progress Note Date of Service Jul 22, 2017. Progress Note ID Consult Dictated #[id number] A/P: 1. GPC sepsis - unclear source -Continue vanco -Follow repeat cultures -For JEEVAN, if concerned for IE of valve would add gent 1mg/kg IV Q8 hours and rifampin 600mg po daily -Will follow, thank you
[2017-07-22] MEDS: INSULIN ASPART 100 UNITS/ML 3 ML PEN SC SCH ×4 (08:02→21:00)
[2017-07-22] MEDS: AMIODARONE 200 MG TAB PO SCH (08:03)
[2017-07-22] MEDS: ASPIRIN 81 MG ECTAB PO SCH (08:04)
[2017-07-22] MEDS: CARVEDILOL 25 MG TAB PO SCH ×2 (08:04→19:23)
[2017-07-22] MEDS: CHOLECALCIFEROL 1000 INTER.UNIT TAB PO SCH (08:05)
[2017-07-22] MEDS: MULTIVITAMIN TAB PO SCH (08:05)
[2017-07-22] MEDS: OMEGA-3 (PURIFIED FISH OIL) 1 GM CAP PO SCH ×2 (08:05→19:22)
[2017-07-22] MEDS: ALLOPURINOL 100 MG TAB PO SCH (08:06)
[2017-07-22] MEDS: LISINOPRIL 40 MG TAB PO SCH (08:06)
--- NOTE | 2017-07-22 08:44 | INFECT. DISEASE CONSULTATION ---
DATE OF CONSULTATION: 07/22/2017 HISTORY OF PRESENT ILLNESS: This is a 61-year-old gentleman who woke up yesterday morning with fevers. He did follow up with his primary care doctor and he was sent to the Emergency Room for further evaluation. He continues to have fever, but states he is anxious to go home. He does have a history of a valve replacement but echocardiogram did not show any evidence of vegetation. He did have blood cultures drawn in the Emergency Room which 2/2 sets were positive for gram positive cocci. He is on vancomycin. A UA and urine culture are negative. He continues with fevers overnight of a T-max of 38.8. He is tolerating vancomycin well. He initially had a leukocytosis of 13,000. This has improved to 9. His repeat blood cultures are pending. He denies any cough or chest pain. He states he does have multiple scrapes on the skin and this is common for him, but he denies anything that is painful or draining at this time. His remaining review of systems is unremarkable. PAST MEDICAL HISTORY: Significant for AFib, type 2 diabetes, high cholesterol, gout, hypertension. PAST SURGICAL HISTORY: Significant for aortic valve replacement in 2009, tonsillectomy, vasectomy. FAMILY HISTORY: Noncontributory. SOCIAL HISTORY: Negative for tobacco use and alcohol use. ALLERGIES: He has no known drug allergies. CURRENT MEDICATIONS: Include Coumadin, vancomycin, allopurinol, amiodarone, Ecotrin, vitamin D, lisinopril, multivitamin, Lantus insulin, Coreg, Neurontin, fish oil, Coumadin, Tylenol, MiraLax. PHYSICAL EXAMINATION: VITAL SIGNS: He is currently afebrile at 37.1. His T-max is 38.8, pulse 64, respiratory rate 22, blood pressure 138/71, oxygen saturation is 94% on room air. GENERAL: He is awake, alert and oriented x3. He is in no acute distress. HEENT: Mucous membranes are moist. Extraocular muscles are intact. HEART: Regular. ABDOMEN: Soft and nondistended. LUNGS: Clear bilaterally. EXTREMITIES: There is no lower extremity edema. LABORATORY STUDIES: CBC today reveals a white blood cell count of 9.2, hemoglobin 12.2, and platelets of 107. Chemistry panel: Sodium 135, potassium 3.4, chloride 103, bicarbonate 27, BUN 15, creatinine 1.0, glucose 96. UA was negative. Lyme disease screen is negative. [place] was negative. Blood cultures from the are growing GPC. His urine culture is negative. C. diff is negative. Repeat blood cultures from last evening are pending. A chest x-ray done this morning shows cardiomegaly but no infiltration. Echocardiogram was done on the . No vegetation was noted. ASSESSMENT AND PLAN: A gram positive sepsis. At this time, he will remain on empiric antibiotics pending ID source, could be skin lesions, but there are no open skin lesions noted on my examination today. Certainly there would be a concern for prosthetic valve endocarditis and a JEEVAN would be recommended to rule this out. Repeat blood cultures are pending. Also there is concern for abnormality on transthoracic echo to suggest presence of thrombus. Certainly gentamicin and rifampin should be added to cover for prosthetic valve endocarditis in addition to a cardiothoracic evaluation. We will follow along with you.
--- NOTE | 2017-07-22 13:30 | CARDIOLOGY CONSULTATION ---
DATE OF CONSULTATION: 07/22/2017 REASON FOR CONSULTATION: Streptococcus bacteremia. REFERRING PHYSICIAN: Dr. Gita Lees. HISTORY OF PRESENT ILLNESS: Mr. Crowder is a 61-year-old gentleman who presented to the Emergency Department with fever and chills on 07/20/2017. Blood cultures initially demonstrated gram positive cocci with further results suggesting streptococcus species. Sensitivities are pending. The patient reports fevers, subjective chills since 4:00 a.m. 07/21/2017. Initially found to have an elevated white blood cell count. Resting 2D transthoracic echo performed without obvious signs of vegetation. The patient continues to spike fevers overnight with a T-max of 38.8 degrees at 12:04 a.m. Currently, resting comfortably. present at the bedside. Denies chest pain or unusual shortness of breath. No orthopnea, PND, or claudication. He utilizes compression stockings for chronic edema. Recently prescribed amiodarone for atrial fibrillation. He is in sinus rhythm on telemetry. INR is mildly subtherapeutic. REVIEW OF SYSTEMS: The pertinent positive noted above, a comprehensive 10-system review is otherwise negative. PAST MEDICAL HISTORY: 1. Bicuspid aortic valve. 2. Ascending aortic aneurysm. 3. Diabetes type 2. 4. Paroxysmal atrial fibrillation. 5. Hypertension. PAST SURGICAL HISTORY: 1. Aortic valve replacement with #27 freestyle porcine valve. 2. 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 3. Tonsillectomy. 4. Vasectomy. SOCIAL HISTORY: He is with 3 children. 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 FAMILY HISTORY: Negative for premature CAD or sudden cardiac , father of prostate cancer. ALLERGIES: No known drug allergies. CURRENT OUTPATIENT MEDICATIONS: 1. Allopurinol 100 mg daily. 2. Amiodarone 200 mg daily. 3. Aspirin 81 mg. 4. Carvedilol 37.5 mg twice daily. 5. Vitamin D 2 capsules daily. 6. Lasix 40 mg daily. 7. Neurontin 300 mg daily. 8. Lisinopril 40 mg daily. 9. Glucophage 1000 mg twice daily. 10. Multivitamin daily. 11. [place]-3 fatty acids twice daily. 12. Coumadin 5 mg on Sunday, Sunday, ; 2.5 mg Sunday, Sunday, Sunday, Sunday. EKG on admission: Sinus rhythm, QTC 482, diffuse ST-T abnormality with mild depressions in the high lateral position suggesting possible underlying ischemia. LABORATORY DATA: Troponin undetectable x1 set. Sodium 135, potassium 3.4, chloride 103, CO2 27, BUN 15, creatinine 1.03. White blood cell count is 9.27, hemoglobin is 12.2, platelet count is 107. INR 07/21/2017 is 1.7. 2D transthoracic echo: Technically limited study, no obvious vegetation, moderate mitral annular calcification, normal bioprosthetic valve function, normal aortic root diameter. PHYSICAL EXAMINATION: VITAL SIGNS: Temperature 36.8 degrees centigrade, T-max overnight 38.8 degrees centigrade. Pulse 67 beats per minute, respiratory rate is 18 breaths per minute, blood pressure 154/81, SAO2 is 92% on room air. GENERAL: NAD, awake, alert and oriented x3. HEENT: His mucous membranes are moist. No scleral icterus. Conjunctivae pink. NECK: Supple without JVD, no HJR, no carotid bruit. HEART: Regular with a normal S1 and S2. There is a soft 1/6 systolic ejection murmur heard best at the right second intercostal space without radiation. LUNGS: Clear without rales, rhonchi or wheeze. ABDOMEN: Soft, nontender. No rebound or guarding. EXTREMITIES: Warm and dry. There is no clubbing, cyanosis or edema. NEUROLOGIC: Demonstrates no focal deficit. FINAL IMPRESSION: 1. A 61-year-old patient with history of bioprosthetic aortic valve replacement and aortic root replacement, presents with fever, chills, streptococcal bacteremia. No evidence of endocarditis. Technically limited transthoracic echo. Further evaluation is warranted. 2. History of bicuspid aortic valve with severe aortic stenosis, status post aortic valve replacement. 3. Aortic aneurysm status post aortic root replacement. 4. Diabetes type 2. 5. Paroxysmal atrial fibrillation maintained in sinus rhythm with amiodarone, INR subtherapeutic 07/21. 6. Chronic dependent lower extremity edema - resolved with discontinuation of diltiazem. PLAN AND RECOMMENDATIONS: The risks, benefits, alternatives to transesophageal echocardiography were discussed at length with both the patient and his . They are agreeable to procedure in a.m. Anesthesiology consulted for sedation. The patient will be made nothing per mouth after midnight except for medications. Continue telemetry monitoring. Continue antibiotics per the direction of infectious disease. Will follow cultures at this time. Repeat blood cultures are pending. Thank you for allowing me to participate in the care of your patient. Further recommendations will be made pending results of transesophageal echocardiography.
--- NOTE | 2017-07-22 16:46 | Progress Note ---
Progress Note Date of Service Jul 22, 2017. Progress Note Pt is a 61 yo male admitted for sepsis and gram positive cocci in blood culture. PMH is significant for afib, aortic valve replacement and aortic root repair, NIDDM, gout, obesity, HTN, HLD, and pneumonia in March. Pt is scheduled for JEEVAN to evaluate his aortic valve replacement in the setting of bacteremia. Pt has a reassuring airway, lungs are CTAB and heart has RRR without M/R/G. Pt was consented for MAC with GA backup in the presence of his . Pt was instructed to remain NPO after midnight except for his morning meds with a sip of water. Will notify the anesthesia team for tomorrow to arrange for JEEVAN during tomorrow's schedule. Cyndi Salas MD, PhD Anesthesiology
--- NOTE | 2017-07-22 18:54 | Progress Note ---
Internal Med Progress Note Date of Service: Jul 22, 2017. Provider Documentation: SUBJECTIVE: spiked temp no complain of SOB no chest pain or discomfort no cough OBJECTIVE: Vital Signs-as noted below Exam: General-no sign of distress Eyes-sclera nonicteric ENT-moist oral mucous Neck-no JVD Lungs-clear to auscultate Heart-regular S1-S2 Abdomen-soft nontender Extremities-no lower extremity Neuro-alert awake oriented 3/no focal neurological deficit Lab data as noted below. ASSESSMENT & PLAN: SEPSIS/WITH GRAM-POSITIVE BACTEREMIA -Patient presented with sudden onset of high fevers early in a.m. morning Criteria for sepsis -On presentation, temp 38.7, heart rate in the 90s, W BC 13.8 K, lactic acid 2.4 ; BP stable -Blood culture positive for gram-positive cocci-streptococci High risk for endocarditis as patient has bioprosthetic aortic valve Repeat blood culture : gram positive cocci On empiric antibiotic with vancomycin and cefepime ID eval requested D/w Dr Underwood -abx adjusted to ampicillin for streptococci in blood scheduled for JEEVAN tomorrow to R/o endocarditis ATRIAL FIBRILLATION -Rhythm controlled on amiodarone, rate controlled on carvedilol -Anticoagulated on Coumadin, INR 1.9 -Continue Coumadin as per home dosing schedule S/P BIOPROSTHETIC AORTIC VALVE REPLACEMENT Echocardiogram : Ejection Fraction = 60-65%. * There is mild concentric left ventricular hypertrophy. * There is a bioprosthetic aortic valve. * The gradient is normal for this prosthetic aortic valve. * No significant prosthetic valve regurgitation. * Technically limited views of the mitral valve demonstrate moderate mitral annular calcification. * Underlying vegetation cannot be excluded. Given positive blood culture/aortic valve replacement appreciate input form Cardiology scheduled for JEEVAN tomorrow NPO past midnight HYPERTENSION -Stable -Continue lisinopril and carvedilol, DIABETES -Hold oral agents and utilize Lantus and NovoLog while hospitalized GOUT -Continue allopurinol DVT PROPHYLAXIS - on Coumadin, CODE STATUS full code DISPOSITION Expect expected to be discharged home when medically stable updated Vital Signs: Date Time Temp Pulse Resp B/P (MAP) Pulse Ox O2 Delivery O2 Flow Rate FiO2 07/23/17 15:45 Room Air 07/23/17 15:05 37.0 55 18 158/82 (107) 93 Room Air 07/23/17 11:44 36.7 68 22 172/83 (112) 92 Room Air 07/23/17 11:30 Room Air 07/23/17 09:03 36.9 61 18 157/78 (104) 95 Room Air 07/23/17 09:00 Room Air 07/23/17 08:28 68 18 141/74 (96) 94 Room Air 07/23/17 08:20 68 18 137/66 (89) 94 Room Air 07/23/17 08:10 70 18 148/69 (95) 95 Room Air 07/23/17 08:00 69 18 138/65 95 Nasal Cannula 6 07/23/17 07:55 70 18 125/65 95 Nasal Cannula 6 07/23/17 07:50 72 18 132/89 95 Nasal Cannula 6 07/23/17 07:45 69 18 129/89 95 Nasal Cannula 6 07/23/17 07:40 72 18 144/89 95 Nasal Cannula 6 07/23/17 07:35 72 18 165/85 97 Nasal Cannula 6 07/23/17 07:30 82 18 174/83 93 Nasal Cannula 6 07/23/17 04:30 37.7 68 22 164/82 (109) 92 Room Air 07/23/17 04:00 Room Air 07/23/17 00:01 Room Air 07/22/17 23:30 37.9 73 19 103/50 (67) 90 Room Air 07/22/17 20:00 Room Air 07/22/17 19:25 36.9 69 20 177/90 (119) 94 Room Air Lab Results: Results Past 24 Hours Test 07/22/17 21:07 07/23/17 03:32 07/23/17 06:28 07/23/17 11:16 Range/Units Bedside Glucose 107 96 135 70-99 mg/dl White Blood Count 7.39 4.8-10.8 K/uL Red Blood Count 4.19 4.7-6.1 M/uL Hemoglobin 11.8 14.0-18.0 g/dL Hematocrit 35.6 42-52 % Mean Corpuscular Volume 85.0 80-100 fL Mean Corpuscular Hemoglobin 28.2 25-34 pg Mean Corpuscular Hemoglobin Concent 33.1 32-36 g/dl RDW Standard Deviation 47.1 36.4-46.3 fL RDW Coefficient of Variation 15.2 11.5-14.5 % Platelet Count 112 130-400 K/uL Mean Platelet Volume 10.4 7.4-10.4 fL Prothrombin Time 14.2 9.0-12.0 SECONDS Prothromb Time International Ratio 1.4 0.9-1.1 Sodium Level 137 136-145 mmol/L Potassium Level 3.7 3.5-5.1 mmol/L Chloride Level 104 98-107 mmol/L Carbon Dioxide Level 29 21-32 mmol/L Anion Gap 4.0 3-11 mmol/L Blood Urea Nitrogen 11 7-18 mg/dl Creatinine 0.85 0.60-1.40 mg/dl Est Creatinine Clear Calc Drug Dose 127.9 ml/min Estimated GFR () 110.5 Estimated GFR (Non- 95.4 BUN/Creatinine Ratio 13.6 10-20 Random Glucose 99 70-99 mg/dl Calcium Level 8.1 8.5-10.1 mg/dl Magnesium Level 2.2 1.8-2.4 mg/dl Vancomycin Level Trough 9.3 SEE COMMENT mcg/ml Test 07/23/17 16:18 Range/Units Bedside Glucose 104 70-99 mg/dl Microbiology Results 07/23/17 Blood Culture, Received Pending 07/23/17 Blood Culture, Received Pending
[2017-07-22] MEDS: GABAPENTIN 300 MG CAP PO SCH (19:22)
[2017-07-22] MEDS ORDERED: AMPICILLIN INJ 2,000 MG in SODIUM CHLORIDE 0.9% 50ML 50 ML IV SCH (20:00)
[2017-07-22] MEDS ORDERED: WARFARIN SOD 5 MG TAB PO SCH (20:15)
[2017-07-22] MEDS: AMPICILLIN IV 2,000 MG in SODIUM CHLOR 0.9% AD-VAN 100ML 100 ML IV SCH ×2 (20:24→23:46)
[2017-07-22] MEDS: INSULIN GLARGINE SOLOSTAR 100 UNITS/ML 3 ML PEN SC SCH (21:13)
[2017-07-22] MEDS: LORAZEPAM 0.5 MG TAB PO PRN (22:17)
[2017-07-23] VITALS (13 sets, daily range): BP systolic 125–182; BP diastolic 65–90; PULSE 55–82; TEMP 36.6–37.7; O2SAT 92–97
[2017-07-23] MEDS ORDERED: VANCOMYCIN TROUGH SCH (03:30)
[2017-07-23 03:47] LABS: HEMATOCRIT 35.6 % (42-52); HEMOGLOBIN 11.8 g/dL (14.0-18.0); MEAN CORPUSCULAR HEMOGLOBIN 28.2 pg (25-34); MEAN CORPUSCULAR HGB CONC 33.1 g/dl (32-36); MEAN PLATELET VOLUME 10.4 fL (7.4-10.4); PLATELET COUNT 112 K/uL (130-400); RED CELL DISTRIBUTION WIDTH CV 15.2 % (11.5-14.5); RED CELL DISTRIBUTION WIDTH SD 47.1 fL (36.4-46.3); WHITE BLOOD COUNT 7.39 K/uL (4.8-10.8)
[2017-07-23] MEDS: AMPICILLIN IV 2,000 MG in SODIUM CHLOR 0.9% AD-VAN 100ML 100 ML IV SCH ×5 (03:56→20:19)
[2017-07-23 04:00] LABS: INR 1.4 (0.9-1.1)
[2017-07-23 04:11] LABS: CALCIUM 8.1 mg/dl (8.5-10.1); CREATININE 0.85 mg/dl (0.60-1.40); POTASSIUM 3.7 mmol/L (3.5-5.1)
[2017-07-23] MEDS: VANCOMYCIN IV 1,750 MG in SODIUM CHLORIDE 0.9% 500ML 500 ML IV SCH ×2 (04:34→13:12)
[2017-07-23] MEDS ORDERED: LIDOCAINE HCL 2% 2 ML VIAL (20MG/ML) ONE ×2 (07:00)
[2017-07-23] MEDS ORDERED: PROPOFOL IV EMULSION 10 MG/ML 20 ML VIAL IV ONE (07:00)
[2017-07-23] MEDS ORDERED: KETAMINE HCL INJ 50 MG/ML 10 ML VIAL ONE (07:05)
--- NOTE | 2017-07-23 09:24 | Anesthesiology Progress Note ---
Anesthesia Post Op Note Date & Time Jul 23, 2017 at 09:23 Vital Signs Pain Intensity: 0.0 Vital Signs Past 12 Hours Date Time Temp Pulse Resp B/P (MAP) Pulse Ox O2 Delivery O2 Flow Rate FiO2 07/23/17 09:03 36.9 61 18 157/78 (104) 95 Room Air 07/23/17 08:28 68 18 141/74 (96) 94 Room Air 07/23/17 08:20 68 18 137/66 (89) 94 Room Air 07/23/17 08:10 70 18 148/69 (95) 95 Room Air 07/23/17 08:00 69 18 138/65 95 Nasal Cannula 6 07/23/17 07:55 70 18 125/65 95 Nasal Cannula 6 07/23/17 07:50 72 18 132/89 95 Nasal Cannula 6 07/23/17 07:45 69 18 129/89 95 Nasal Cannula 6 07/23/17 07:40 72 18 144/89 95 Nasal Cannula 6 07/23/17 07:35 72 18 165/85 97 Nasal Cannula 6 07/23/17 07:30 82 18 174/83 93 Nasal Cannula 6 07/23/17 04:30 37.7 68 22 164/82 (109) 92 Room Air 07/23/17 04:00 Room Air 07/23/17 00:01 Room Air 07/22/17 23:30 37.9 73 19 103/50 (67) 90 Room Air Notes Mental Status: alert / awake / arousable, participated in evaluation Pt Amnestic to Procedure: Yes Nausea / Vomiting: adequately controlled Pain: adequately controlled Airway Patency, RR, SpO2: stable & adequate BP & HR: stable & adequate Hydration State: stable & adequate Anesthetic Complications: no major complications apparent
--- NOTE | 2017-07-23 10:17 | Pharmacy Progress Note ---
Pharmacy Abx Dose Short Note Date of Service Jul 23, 2017. Assessment & Plan Assessment 61 year old male receiving vancomycin/ampicillin for treatment of bactermia/ possible endocarditis secondary to ?SSTI or AVR. Patient underwent JEEVAN. Patient with borderline BMI for obesity adjustment, but I still expect some accumulation. Given subtherapeutic level, however, I will increase the dosing interval and recheck a level tomorrow morning. Day # 4 of antimicrobial therapy. Plan Vancomycin * Trough level of 9.3 mcg/mL is subtherapeutic. * Change to 1750 mg IV every 10 hours * Goal trough level for bacteremia : 15 to 20 mcg/mL * Trough or random level ordered for: 07/24/17 @8119 Pharmacy will continue to follow and will adjust dose/frequency as necessary. Thank you.
[2017-07-23] MEDS: ALLOPURINOL 100 MG TAB PO SCH (10:19)
[2017-07-23] MEDS: LISINOPRIL 40 MG TAB PO SCH (10:19)
[2017-07-23] MEDS: MULTIVITAMIN TAB PO SCH (10:19)
[2017-07-23] MEDS: CHOLECALCIFEROL 1000 INTER.UNIT TAB PO SCH (10:19)
[2017-07-23] MEDS: OMEGA-3 (PURIFIED FISH OIL) 1 GM CAP PO SCH ×2 (10:19→21:04)
[2017-07-23] MEDS: CARVEDILOL 25 MG TAB PO SCH ×2 (10:20→21:03)
[2017-07-23] MEDS: AMIODARONE 200 MG TAB PO SCH (10:28)
[2017-07-23] MEDS: ASPIRIN 81 MG ECTAB PO SCH (10:28)
[2017-07-23] MEDS: INSULIN ASPART 100 UNITS/ML 3 ML PEN SC SCH ×4 (10:30→21:00)
--- NOTE | 2017-07-23 10:44 | Progress Note ---
Subjective Date of Service: Jul 23, 2017. Subjective Pt evaluation today including: conversation w/ patient, conversation w/ family , physical exam, chart review, lab review pt seen in followup, s/p JEEVAN, tolerated well results pending. Initial blood cultures with strep species, followup blood cultures with gpc 2/2 sets as well. repeat cultures obtained this am. fevers improving, tmax 37.9. No cp, sob, n/v/d /abd pain. tolerating abx, amp added last night. present and states pt recently had abscess on right flank, sponaneously opened and drained and then improved, now gone. no additional skin lesions currently. all remaining ros reviewed and are negative. Problem List Medical Problems: (1) Fever Status: Acute (2) Sepsis Status: Acute Objective Vital Signs Date Time Temp Pulse Resp B/P (MAP) Pulse Ox O2 Delivery O2 Flow Rate FiO2 07/23/17 09:03 36.9 61 18 157/78 (104) 95 Room Air 07/23/17 09:00 Room Air 07/23/17 08:28 68 18 141/74 (96) 94 Room Air 07/23/17 08:20 68 18 137/66 (89) 94 Room Air 07/23/17 08:10 70 18 148/69 (95) 95 Room Air 07/23/17 08:00 69 18 138/65 95 Nasal Cannula 6 07/23/17 07:55 70 18 125/65 95 Nasal Cannula 6 07/23/17 07:50 72 18 132/89 95 Nasal Cannula 6 07/23/17 07:45 69 18 129/89 95 Nasal Cannula 6 07/23/17 07:40 72 18 144/89 95 Nasal Cannula 6 07/23/17 07:35 72 18 165/85 97 Nasal Cannula 6 07/23/17 07:30 82 18 174/83 93 Nasal Cannula 6 07/23/17 04:30 37.7 68 22 164/82 (109) 92 Room Air 07/23/17 04:00 Room Air 07/23/17 00:01 Room Air 07/22/17 23:30 37.9 73 19 103/50 (67) 90 Room Air 07/22/17 20:00 Room Air 07/22/17 19:25 36.9 69 20 177/90 (119) 94 Room Air 07/22/17 16:00 Room Air 07/22/17 15:42 36.7 68 20 177/91 (119) 95 Room Air 07/22/17 12:00 Room Air 07/22/17 11:25 37.0 65 18 148/81 (103) 92 Physical Exam General Appearance: WD/WN, no apparent distress Eyes: normal inspection, EOMI Neck: supple Respiratory/Chest: lungs clear, normal breath sounds, no respiratory distress Cardiovascular: regular rate, rhythm, no edema Abdomen: non tender, soft Extremities: non-tender, no pedal edema Neurologic/Psychiatric: alert, oriented x 3 Skin: normal color Laboratory Results Last 24 Hours Test 07/22/17 11:19 07/22/17 16:22 07/22/17 21:07 07/23/17 03:32 Bedside Glucose 104 mg/dl 100 mg/dl 107 mg/dl White Blood Count 7.39 K/uL Red Blood Count 4.19 M/uL Hemoglobin 11.8 g/dL Hematocrit 35.6 % Mean Corpuscular Volume 85.0 fL Mean Corpuscular Hemoglobin 28.2 pg Mean Corpuscular Hemoglobin Concent 33.1 g/dl RDW Standard Deviation 47.1 fL RDW Coefficient of Variation 15.2 % Platelet Count 112 K/uL Mean Platelet Volume 10.4 fL Prothrombin Time 14.2 SECONDS Prothromb Time International Ratio 1.4 Sodium Level 137 mmol/L Potassium Level 3.7 mmol/L Chloride Level 104 mmol/L Carbon Dioxide Level 29 mmol/L Anion Gap 4.0 mmol/L Blood Urea Nitrogen 11 mg/dl Creatinine 0.85 mg/dl Est Creatinine Clear Calc Drug Dose 127.9 ml/min Estimated GFR () 110.5 Estimated GFR (Non- 95.4 BUN/Creatinine Ratio 13.6 Random Glucose 99 mg/dl Calcium Level 8.1 mg/dl Magnesium Level 2.2 mg/dl Vancomycin Level Trough 9.3 mcg/ml Test 07/23/17 06:28 Bedside Glucose 96 mg/dl Assessment and Plan (1) Gram positive septicemia Assessment & Plan: continue abx, follow cultures, await JEEVAN
--- NOTE | 2017-07-23 12:12 | Cardiology Follow-Up ---
Subjective General Date of Service: Jul 23, 2017. Pt evaluation today including: conversation w/ patient, conversation w/ family , physical exam, chart review, lab review, review of studies, review of inpatient medication list History of Present Illness The patient is a 61 year old male seen in follow-up. Transesophageal echocardiogram performed this morning. No evidence of endocarditis. Normal bioprosthetic valve function. Low-grade fevers overnight. Repeat blood cultures demonstrate persistent bacteremia. No chest pain or shortness of breath. No dysrhythmia on telemetry. Allergies Coded Allergies: No Known Allergies (Unverified , 07/20/17) Social History Smoking Status: Never Smoker Hx Tobacco Use In Past Year?: No Hx Alcohol Use - Type And Amou: No Hx Substance Use - Type And Am: No Problem List Medical Problems: (1) Fever Status: Acute (2) Sepsis Status: Acute Review of Systems Respiratory: No cough, No sputum, No wheezing, No shortness of breath, No dyspnea on exertion, No dyspnea at rest, No hemoptysis Cardiac: No chest pain, No orthopnea, No PND, No edema, No claudication, No palpitations Physical Exam Vital Signs Last Vital Signs Documentation Date Time Temp Pulse Resp B/P (MAP) Pulse Ox O2 Delivery O2 Flow Rate FiO2 07/23/17 11:44 36.7 68 22 172/83 (112) 92 Room Air 07/23/17 08:00 6 Physical Exam Constitutional: General Apperance: well-nourished, overweight Level of Distress: NAD Neck: supple, trachea midline Lungs: Auscultation: breath sounds normal, no wheezing, no rales/crackles, no rhonchi Cardiovascular: Heart Auscultation: RRR, normal S1, normal S2, I/ DUSTIN Extremities: no cyanosis, no edema, no clubbing, no ulcers Neurologic: Gait & Station: pertinent finding (No focal motor deficit) Cranial Nerves: grossly intact Assessment and Plan Assessment and Plan FINAL IMPRESSION: 1. Persistent streptococcal bacteremia 2. History of bicuspid aortic valve with severe aortic stenosis, status post aortic valve replacement. -No evidence of endocarditis per transesophageal echocardiography 3. Aortic aneurysm status post aortic root replacement. 4. Diabetes type 2. 5. Paroxysmal atrial fibrillation maintained in sinus rhythm with amiodarone, INR subtherapeutic. PLAN AND RECOMMENDATIONS: Increase Coumadin to 5 mg daily. Repeat INR in a.m. Continue current cardiovascular medications as previously ordered. Antibiotics and duration of therapy per infectious disease specialist. Will continue to follow during hospitalization. Laboratory Results Last 24 Hours Test 07/22/17 16:22 07/22/17 21:07 07/23/17 03:32 07/23/17 06:28 Bedside Glucose 100 mg/dl 107 mg/dl 96 mg/dl White Blood Count 7.39 K/uL Red Blood Count 4.19 M/uL Hemoglobin 11.8 g/dL Hematocrit 35.6 % Mean Corpuscular Volume 85.0 fL Mean Corpuscular Hemoglobin 28.2 pg Mean Corpuscular Hemoglobin Concent 33.1 g/dl RDW Standard Deviation 47.1 fL RDW Coefficient of Variation 15.2 % Platelet Count 112 K/uL Mean Platelet Volume 10.4 fL Prothrombin Time 14.2 SECONDS Prothromb Time International Ratio 1.4 Sodium Level 137 mmol/L Potassium Level 3.7 mmol/L Chloride Level 104 mmol/L Carbon Dioxide Level 29 mmol/L Anion Gap 4.0 mmol/L Blood Urea Nitrogen 11 mg/dl Creatinine 0.85 mg/dl Est Creatinine Clear Calc Drug Dose 127.9 ml/min Estimated GFR () 110.5 Estimated GFR (Non- 95.4 BUN/Creatinine Ratio 13.6 Random Glucose 99 mg/dl Calcium Level 8.1 mg/dl Magnesium Level 2.2 mg/dl Vancomycin Level Trough 9.3 mcg/ml Test 07/23/17 11:16 Bedside Glucose 135 mg/dl
[2017-07-23 13:54] LABS: EBV EARLY ANTIGEN AB >150.00 U/ML
[2017-07-23] MEDS: WARFARIN SOD 5 MG TAB PO SCH (17:37)
--- NOTE | 2017-07-23 19:15 | Progress Note ---
Internal Med Progress Note Date of Service: Jul 23, 2017. Provider Documentation: SUBJECTIVE: OBJECTIVE: Vital Signs-as noted below Exam: General-no sign of distress Eyes-sclera nonicteric ENT-moist oral mucous Neck-no JVD Lungs-clear to auscultate Heart-regular S1-S2 Abdomen-soft nontender Extremities-no lower extremity Neuro-alert awake oriented 3/no focal neurological deficit Lab data as noted below. ASSESSMENT & PLAN: SEPSIS/WITH GRAM-POSITIVE BACTEREMIA -Patient presented with sudden onset of high fevers early in a.m. morning Criteria for sepsis -On presentation, temp 38.7, heart rate in the 90s, W BC 13.8 K, lactic acid 2.4 ; BP stable -Blood culture positive for gram-positive cocci-streptococci High risk for endocarditis as patient has bioprosthetic aortic valve Repeat blood culture : gram positive cocci On empiric antibiotic with vancomycin and cefepime ID eval requested D/w Dr Underwood -abx adjusted to ampicillin for streptococci in blood s/p JEEVAN no evidence of endocarditis final isolation of Bacteremia -Enterococci Abx changed to IV Vancomycin PICC line will be placed once blood culture negative growth will need home abx tx ATRIAL FIBRILLATION -Rhythm controlled on amiodarone, rate controlled on carvedilol -Anticoagulated on Coumadin, I S/P BIOPROSTHETIC AORTIC VALVE REPLACEMENT Echocardiogram : Ejection Fraction = 60-65%. * There is mild concentric left ventricular hypertrophy. * There is a bioprosthetic aortic valve. * The gradient is normal for this prosthetic aortic valve. * No significant prosthetic valve regurgitation. * Technically limited views of the mitral valve demonstrate moderate mitral annular calcification. * Underlying vegetation cannot be excluded. Given positive blood culture/aortic valve replacement appreciate input form Cardiology JEEVAN done -no evidence of endocarditis HYPERTENSION -Stable -Continue lisinopril and carvedilol, DIABETES -Hold oral agents and utilize Lantus and NovoLog while hospitalized GOUT -Continue allopurinol DVT PROPHYLAXIS - on Coumadin, CODE STATUS full code DISPOSITION Expect expected to be discharged home when medically stable Vital Signs: Date Time Temp Pulse Resp B/P (MAP) Pulse Ox O2 Delivery O2 Flow Rate FiO2 07/23/17 19:18 36.9 63 18 157/88 (111) 93 Room Air 07/23/17 15:45 Room Air 07/23/17 15:05 37.0 55 18 158/82 (107) 93 Room Air 07/23/17 11:44 36.7 68 22 172/83 (112) 92 Room Air 07/23/17 11:30 Room Air 07/23/17 09:03 36.9 61 18 157/78 (104) 95 Room Air 07/23/17 09:00 Room Air 07/23/17 08:28 68 18 141/74 (96) 94 Room Air 07/23/17 08:20 68 18 137/66 (89) 94 Room Air 07/23/17 08:10 70 18 148/69 (95) 95 Room Air 07/23/17 08:00 69 18 138/65 95 Nasal Cannula 6 07/23/17 07:55 70 18 125/65 95 Nasal Cannula 6 07/23/17 07:50 72 18 132/89 95 Nasal Cannula 6 07/23/17 07:45 69 18 129/89 95 Nasal Cannula 6 07/23/17 07:40 72 18 144/89 95 Nasal Cannula 6 07/23/17 07:35 72 18 165/85 97 Nasal Cannula 6 07/23/17 07:30 82 18 174/83 93 Nasal Cannula 6 07/23/17 04:30 37.7 68 22 164/82 (109) 92 Room Air 07/23/17 04:00 Room Air 07/23/17 00:01 Room Air 07/22/17 23:30 37.9 73 19 103/50 (67) 90 Room Air Lab Results: Results Past 24 Hours Test 07/22/17 21:07 07/23/17 03:32 07/23/17 06:28 07/23/17 11:16 Range/Units Bedside Glucose 107 96 135 70-99 mg/dl White Blood Count 7.39 4.8-10.8 K/uL Red Blood Count 4.19 4.7-6.1 M/uL Hemoglobin 11.8 14.0-18.0 g/dL Hematocrit 35.6 42-52 % Mean Corpuscular Volume 85.0 80-100 fL Mean Corpuscular Hemoglobin 28.2 25-34 pg Mean Corpuscular Hemoglobin Concent 33.1 32-36 g/dl RDW Standard Deviation 47.1 36.4-46.3 fL RDW Coefficient of Variation 15.2 11.5-14.5 % Platelet Count 112 130-400 K/uL Mean Platelet Volume 10.4 7.4-10.4 fL Prothrombin Time 14.2 9.0-12.0 SECONDS Prothromb Time International Ratio 1.4 0.9-1.1 Sodium Level 137 136-145 mmol/L Potassium Level 3.7 3.5-5.1 mmol/L Chloride Level 104 98-107 mmol/L Carbon Dioxide Level 29 21-32 mmol/L Anion Gap 4.0 3-11 mmol/L Blood Urea Nitrogen 11 7-18 mg/dl Creatinine 0.85 0.60-1.40 mg/dl Est Creatinine Clear Calc Drug Dose 127.9 ml/min Estimated GFR () 110.5 Estimated GFR (Non- 95.4 BUN/Creatinine Ratio 13.6 10-20 Random Glucose 99 70-99 mg/dl Calcium Level 8.1 8.5-10.1 mg/dl Magnesium Level 2.2 1.8-2.4 mg/dl Vancomycin Level Trough 9.3 SEE COMMENT mcg/ml Test 07/23/17 16:18 Range/Units Bedside Glucose 104 70-99 mg/dl Microbiology Results 07/23/17 Blood Culture, Received Pending 07/23/17 Blood Culture, Received Pending
[2017-07-23] MEDS: GABAPENTIN 300 MG CAP PO SCH (21:04)
[2017-07-23] MEDS: INSULIN GLARGINE SOLOSTAR 100 UNITS/ML 3 ML PEN SC SCH (21:15)
[2017-07-24] MEDS: AMPICILLIN IV 2,000 MG in SODIUM CHLOR 0.9% AD-VAN 100ML 100 ML IV SCH ×4 (00:05→08:40)
[2017-07-24] MEDS: VANCOMYCIN IV 1,750 MG in SODIUM CHLORIDE 0.9% 500ML 500 ML IV SCH ×2 (00:05→10:17)
[2017-07-24] MEDS: LORAZEPAM 0.5 MG TAB PO PRN (00:05)
[2017-07-24 00:51] VITALS: BP 182/90; PULSE 66; TEMP 36.6; O2SAT 94
[2017-07-24 01:05] VITALS: BP 180/92; PULSE 66; TEMP 36.8; O2SAT 93
[2017-07-24 07:25] VITALS: BP 189/93; PULSE 59; TEMP 36.5; O2SAT 93
[2017-07-24] MEDS: ASPIRIN 81 MG ECTAB PO SCH (07:46)
[2017-07-24] MEDS: CHOLECALCIFEROL 1000 INTER.UNIT TAB PO SCH (07:46)
[2017-07-24] MEDS: AMIODARONE 200 MG TAB PO SCH (07:47)
[2017-07-24] MEDS: LISINOPRIL 40 MG TAB PO SCH (07:47)
[2017-07-24] MEDS: MULTIVITAMIN TAB PO SCH (07:47)
[2017-07-24] MEDS: OMEGA-3 (PURIFIED FISH OIL) 1 GM CAP PO SCH (07:47)
[2017-07-24] MEDS: CARVEDILOL 25 MG TAB PO SCH (07:48)
[2017-07-24] MEDS: ALLOPURINOL 100 MG TAB PO SCH (07:48)
[2017-07-24] MEDS: INSULIN ASPART 100 UNITS/ML 3 ML PEN SC SCH ×2 (07:52→11:56)
[2017-07-24] MEDS ORDERED: VANCOMYCIN TROUGH ONE (09:30)
[2017-07-24 09:37] VITALS: BP 160/89; PULSE 59
[2017-07-24 10:06] LABS: INR 1.9 (0.9-1.1)
[2017-07-24 10:07] LABS: HEMATOCRIT 34.8 % (42-52); MEAN CELL VOLUME 83.7 fL (80-100); MEAN CORPUSCULAR HEMOGLOBIN 28.8 pg (25-34); MEAN CORPUSCULAR HGB CONC 34.5 g/dl (32-36); MEAN PLATELET VOLUME 10.7 fL (7.4-10.4); PLATELET COUNT 171 K/uL (130-400); RED CELL DISTRIBUTION WIDTH CV 14.8 % (11.5-14.5); RED CELL DISTRIBUTION WIDTH SD 45.4 fL (36.4-46.3); WHITE BLOOD COUNT 6.63 K/uL (4.8-10.8)
[2017-07-24 10:34] LABS: CALCIUM 8.5 mg/dl (8.5-10.1); CREATININE 0.83 mg/dl (0.60-1.40); POTASSIUM 3.5 mmol/L (3.5-5.1)
[2017-07-24] MEDS ORDERED: PHARMACY CONSULT IN PROGRESS PRN (11:45)
--- NOTE | 2017-07-24 11:46 | Discharge Instructions ---
Discharge Instructions Date of Service Jul 24, 2017. Admission Reason for Admission: Sepsis Discharge Discharge Diagnosis / Problem: Sepsis Discharge Goals Goal(s): Diagnostic testing, Therapeutic intervention Activity Recommendations Activity Limitations: per Instructions/Follow-up section Lifting Limitations: gradually increase as tolerated Exercise/Sports Limitations: gradually increase as tolerated Please be cautious with exercise or strenuous activity (as discussed) due to the PICC line being in place and posing a risk of getting dislodged . Instructions / Follow-Up Instructions / Follow-Up Please see Dr. Ingram on August 06 as previously arranged Please see Dr. Francisco on July 31 at 11:05 AM for hospital discharge Current Hospital Diet Patient's current hospital diet: AHA Diet (Heart Healthy) Discharge Diet Recommended Diet: AHA Diet (Heart Healthy) Procedures Procedures Performed: JEEVAN PICC line placement Pending Studies Studies pending at discharge: yes List of pending studies: Blood cultures drawn 07/23 are not yet final; prelim were negative Laboratory Results Hemoglobin A1c Test 07/21/17 03:47 Range/Units Estimated Average Glucose 120 mg/dl Hemoglobin A1c 5.8 H 4.5-5.6 % Medical Emergencies . Who to Call and When: Medical Emergencies: If at any time you feel your situation is an emergency, please call 911 immediately. . Non-Emergent Contact Non-Emergency issues call your: Primary Care Provider, [facility] Progressive Care Unit . . "Provider Documentation" section prepared by Kelley Flannery. .
[2017-07-24] MEDS ORDERED: DAPT500I IV (13:25)
[2017-07-24 15:13] VITALS: BP 182/93; PULSE 64; TEMP 37.2; O2SAT 94
--- NOTE | 2017-07-24 15:27 | Discharge Summary ---
Discharge Summary Date of Service Jul 24, 2017. Discharge Summary Admission Date: Jul 20, 2017 at 19:40 Discharge Date: Jul 24, 2017 Discharge Disposition: Home with services Principal Diagnosis: Sepsis, bacteremia Procedures: JEEVAN, TTE Consultations: ID Medication Reconciliation New Medications: Daptomycin (Daptomycin) 500 Mg Inj 600 MG IV DAILY for 26 Days, #26 DOSE Continued Medications: Allopurinol (Zyloprim) 100 Mg Tab 100 MG PO DAILY Amiodarone Hcl (Cordarone) 200 Mg Tab 1 TAB PO DAILY for 90 Days, #90 TAB 1 Refill Aspirin (Aspirin 81) 81 Mg Tab 1 TAB PO DAILY Carvedilol (Coreg) 25 Mg Tab 37.5 MG PO BID, TAB Cholecalciferol (Vitamin D 1000 Unit) 1,000 Unit Cap 2 CAP PO DAILY, CAP Furosemide (Lasix) 20 Mg Tab 40 MG PO DAILY, TAB Gabapentin (Neurontin) 300 Mg Cap 300 MG PO HS Lisinopril (Zestril) 40 Mg Tab 40 MG PO DAILY Metformin Hcl (Glucophage) 1,000 Mg Tab 1000 MG PO BID Multivitamin (Multivitamin) Tab 1 TAB PO DAILY, TAB [id number] Ethyl Esters (Rogers-3) 1 Cap Cap 2 CAP PO BID, CAP Warfarin Sodium (Coumadin) 5 Mg Tab 5 MG PO SuTuTh, TAB Warfarin Sodium (Coumadin) 5 Mg Tab 2.5 MG PO MoWeFrSa, TAB Admission Information HPI (per Admitting provider): 61-year-old male who presents the ED with fever. Patient reports he woke up at 4:00 in the morning and had chills and rigors. Patient did not take his temperature at home. Patient presented to his PCPs office today where he is found to be febrile at 103.1. He was given Tylenol and on recheck temperature was 103.9. He had outpatient labs, urine test, influenza testing that was all unremarkable. He was referred to the ER for further evaluation. Patient denies any other associated symptoms. No cough, shortness of breath, or sputum production. No sinus symptoms. He denies abdominal pain, nausea, vomiting, or diarrhea. No urinary symptoms or flank pain. No new rashes or lesions. He denies joint pain. No recent travel or sick contacts. 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 He denies chest pain, lightheadedness, dizziness, diaphoresis, and syncopal events. In the ED, patient was found to have WBC 13.8 K, fever of 38.7, mild tachycardia in the 90s, and elevated lactic acid 2.4. Patient was given IVF and cefepime. Physical Exam (per Admitting): General Appearance: WD/WN, + mild distress Head: normocephalic, atraumatic Eyes: normal inspection, EOMI, sclerae normal ENT: hearing grossly normal, pharynx normal, + pertinent finding (Mucous membranes moist) Neck: supple, no JVD, trachea midline Respiratory/Chest: lungs clear, normal breath sounds, no respiratory distress Cardiovascular: regular rate, rhythm (Heart rate in the 90s), no edema, normal peripheral pulses Abdomen/GI: normal bowel sounds, non tender, soft, no organomegaly Extremities/Musculoskelatal: normal inspection, no calf tenderness, normal capillary refill Neurologic/Psych: no motor/sensory deficits, alert, normal mood/affect, oriented x 3 Skin: normal color, warm/dry, no rash Hospital Course SEPSIS/WITH GRAM-POSITIVE BACTEREMIA: -Patient presented with sudden onset of high fevers that started all of a sudden -met criteria for sepsis: temp 38.7, heart rate in the 90s, W BC 13.8 K, lactic acid 2.4; BP stable -Blood culture positive for gram-positive cocci-streptococci -High risk for endocarditis as patient has bioprosthetic aortic valve-->JEEVAN was done and negative for endocarditis -Repeat blood cultures also gram positive cocci-->Enterococcus faecalis -was on empiric antibiotic with vancomycin and ampicillin-->changed to Daptomycin upon discharge -ID consulted, appreciate recs -PICC line placed today; 3rd set of blood cultures is showing no growth -needs 4 weeks total IV abx; will have home IV abx ATRIAL FIBRILLATION: -controlled -continue on amiodarone, rate controlled on carvedilol -anticoagulated with Coumadin S/P BIOPROSTHETIC AORTIC VALVE REPLACEMENT: -Echocardiogram : Ejection Fraction = 60-65%. * There is mild concentric left ventricular hypertrophy. * There is a bioprosthetic aortic valve. * The gradient is normal for this prosthetic aortic valve. * No significant prosthetic valve regurgitation. * Technically limited views of the mitral valve demonstrate moderate mitral annular calcification. * Underlying vegetation cannot be excluded. -Cardiology consulted, appreciate recs -JEEVAN: no evidence of endocarditis HYPERTENSION: -Stable -Continue lisinopril and carvedilol DM TYPE II: -hold oral agents while in the hospital -Lantus and NovoLog while hospitalized GOUT: -continue allopurinol PHYSICAL EXAM: GENERAL: Patient is in no acute distress. HEENT: No acute trauma, normocephalic, mucous membranes moist, no nasal congestion, no scleral icterus. NECK: No stridor, trachea is midline. LUNGS: Clear to auscultation bilaterally, no wheeze, no rhonchi, breath sounds equal. HEART: Without gallops or rubs, +DUSTIN, regular rate and rhythm. ABDOMEN: Soft, nontender, bowel sounds positive EXTREMITIES: No cyanosis or edema, full range of motion of all the joints without pain or difficulty, no signs for acute trauma. NEUROLOGIC: Oriented x 3, no acute motor or sensory deficits, no focal weakness. SKIN: No rash, no jaundice, no diaphoresis. Total time spent on discharge = 37 This includes examination of the patient, discharge planning, medication reconciliation, and communication with other providers. Discharge Instructions see patient instructions
[2017-07-24] MEDS: WARFARIN SOD 5 MG TAB PO SCH (16:00)
[2017-07-24] MEDS ORDERED: DAPTOmycin IV 600 MG in SYRINGE 0 ML IV SCH (17:00)
--- NOTE | 2017-07-27 12:35 | TEE ---
*NOTICE TO RECE[employer]ING [employer] This information is strictly Confidential and protected under [place] law. [place] law prohibits you from making any further disclosure of this information unless further disclosure is expressly permitted by the written consent of the person to whom it pertains or is authorized by law. A general authorization for the release of medical or other information is not sufficient for this purpose. Hospital accepts no responsibility if the information is made available to any other person, INCLUDING THE PATIENT. Interpretation Summary * Name: ELIJAH VELA Study Date: 07/23/2017 07:26 AM BP: 174/86 mmHg * Patient Location: C.2T\S\E222\S\1 HR: 79 * : 1955 (M/d/yyyy) Gender: Male Height: 73 in * Age: 61 yrs Ethnicity: CA Weight: 268 lb * Ordering Physician: Andrew Nelson * Referring Physician: Self, Referred * Performed By: Ayana Otero RCS * * Reason For Study: Eval for Endocarditis * BSA: 2.4 m2 * No evidence of vegetation. * -- Conclusions -- * Ejection Fraction = 60-65%. * There is a bioprosthetic aortic valve. * Bioprosthetic leaflets are thin and move normally. * There is no aortic valvular vegetation. * The mitral valve anatomy is normal. * There is mild mitral regurgitation. * There is mild tricuspid regurgitation. * Doppler findings do not suggest pulmonary hypertension. * Evidence of prior aortic root and ascending aortic replacement. * Normal ascending aortic diameter. * The aortic root is normal size. Procedure Details * JEEVAN Probe #2 utilized for procedure. * The study was performed in Cardiac Catheterization Lab. * Time out was conducted by the physician, nurse, and oracle technical architect with positive identification of patient and procedure. * Informed consent for Transesophageal Echocardiogram was obtained prior to the procedure. * An intravenous line was placed. A topical anesthetic agent was used for oropharangeal anesthesia. A bite block was inserted. * Sedation performed by the anesthesia department. * Sedation Medications: 40 LIDOCAINE \T\ 190 PROPOFOL Procedure Start Time - 737 Procedure Stop Time - 802 * The patient's vital signs, including blood pressure, heart rate, pulse oximetry and cardiac rhythm were monitored throughout the procedure . * A multifrequency, multiplane transesopheageal echocardiographic endoscope was inserted and manipulated in the standard fashion to achieve multiplane views. * The transesophageal probe was passed without difficulty. * The usual views were obtained; basal, mid-esophageal, transgastric and aortic views. * The patient tolerated the procedure well without evidence of orophangeal or esophageal trauma. * Contrast injection with agitated saline was performed. * A 2D transesophageal echocardiogram was performed. * A 2D transesophageal echocardiogram with color flow Doppler was performed. * A 2D transesophageal echocardiogram with Doppler and color flow Doppler was performed. Left Ventricle * The left ventricle is normal in size. * There is normal left ventricular wall thickness. * Left ventricular systolic function is normal. * Ejection Fraction = 60-65%. * The left ventricular wall motion is normal. Right Ventricle * The right ventricle is normal in size and function. Atria * The left atrial size is normal. * No thrombus is detected in the left atrial appendage. * Right atrial size is normal. * The interatrial septum is intact with no evidence for an atrial septal defect. Mitral Valve * The mitral valve anatomy is normal. * There is no vegetation seen on the mitral valve. * There is no mitral valve stenosis. * There is mild mitral regurgitation. Tricuspid Valve * The tricuspid valve is normal. * The tricuspid valve leaflets appear thickened, hooded, and/or redundant, consistent with myxomatous degeneration. * There is no tricuspid stenosis. * There is mild tricuspid regurgitation. * Doppler findings do not suggest pulmonary hypertension. Aortic Valve * There is no aortic valvular vegetation. * No aortic regurgitation is present. * There is a bioprosthetic aortic valve. * Bioprosthetic leaflets are thin and move normally. Pulmonic Valve * The pulmonic valve is not well visualized. * The pulmonic valve is not well seen, but is grossly normal. * There is no pulmonic valvular stenosis. * Trace pulmonic valvular regurgitation. Great Vessels * The aortic root is normal size. * Evidence of prior aortic root and ascending aortic replacement. Normal ascending aortic diameter. Pericardium * There is no pericardial effusion.
== END 2017-07-24 16:30 | disposition home health service (06) | DRG 872 ==
LOC: C.EDB 15:04 → C.MSICU 19:40 → ENRESERV 20:09 → C.2T 07-21 16:40 → C.MS2W 07-23 23:09 → ENRESERV 07-23 23:21
PROVIDERS: ADMIT Hospitalist; ATTEND Internal Medicine
DX: A41.81 Sepsis due to Enterococcus (principal); E11.9 Type 2 diabetes mellitus without complications; E78.5 Hyperlipidemia, unspecified; M10.9 Gout, unspecified; I10 Essential (primary) hypertension; I48.0 Paroxysmal atrial fibrillation; I71.9 Aortic aneurysm of unspecified site, without rupture; E66.9 Obesity, unspecified; Z79.01 Long term (current) use of anticoagulants; Z95.2 Presence of prosthetic heart valve; Z98.52 Vasectomy status; Z79.82 Long term (current) use of aspirin; Z87.01 Personal history of pneumonia (recurrent); Z68.35 Body mass index [BMI] 35.0-35.9, adult